=== PATIENT | female | born 1935 | race Caucasian/White ===

== ENCOUNTER → 2017-12-31 16:04 | Outpatient (POV) | payer MEDICARE, BC, SELFPAY | PROVIDERS: Family Provider Family Medicine; PCP Family Medicine; Visit Provider Family Medicine | DX: Z00.00 Encounter for general adult medical examination without abnormal findings (principal) ==

== ENCOUNTER → 2018-09-30 13:49 | Outpatient (POV) | payer MEDICARE, BC, SELFPAY | DX: Z00.00 Encounter for general adult medical examination without abnormal findings (principal) ==

== ENCOUNTER → 2018-10-30 08:16 | Outpatient (CLI) | payer MEDICARE, BC, SELFPAY ==
--- NOTE | 2018-10-30 08:21 | MM_ITS ---
MM Dig screening mamm BI w/CAD ORDERING PHYSICIAN : Gucci Donahue MD PATIENT AGE: 82 years GENDER: Female COMPARISON: August 2016, 2014 INDICATION: Routine Screening bilateral mammogram. No hormones no new complaints noncontributory family history TECHNIQUE: Standard CC and MLO images were obtained. R2 CAD reviewed. FINDINGS: Low-density breast bilaterally with no significant new findings. No dominant or suspicious mass. No suspicious calcifications. Minimal benign calcifications. Bilateral follow-up in one year recommended. RIGHT BREAST:No new findings LEFT BREAST no new findings of concern :Stable small area of nodularity at the lateral left breast reflecting intramammary lymph node. IMPRESSION: Stable bilateral mammogram. No new areas concern. BI-RADS Category: 1 Negative RECOMMENDED FOLLOW-UP: 1YR 1 YEAR FOLLOW-UP (A letter has been sent to the patient regarding results of the study.)
== END ==
PROVIDERS: PCP Family Medicine; Visit Provider Family Medicine
DX: Z12.31 Encounter for screening mammogram for malignant neoplasm of breast (principal)
CPT/HCPCS: 77067

== ENCOUNTER → 2018-12-07 14:57 | Outpatient (CLI) | payer MEDICARE, BC, SELFPAY ==
--- NOTE | 2018-12-07 15:04 | XR_ITS ---
XR knee LT 3V HISTORY: Left knee pain ITS.REASON: JUDITH KNEE PAIN ORDERING PHYSICIAN: Gcuci Donahue MD PATIENT AGE: 83 years COMPARISON: None FINDINGS: There are mild tricompartmental osteoarthritic changes with chondrocalcinosis of the medial lateral compartment. Osteoarthritic changes are present at the patellofemoral joint with remodeling and sclerosis of the distal femur anteriorly. No fracture, lytic, or blastic changes. IMPRESSION: Osteoarthritis with chondrocalcinosis
--- NOTE | 2018-12-07 15:04 | XR_ITS ---
XR knee RT 3V HISTORY: Right knee pain ITS.REASON: JUDITH KNEE PAIN ORDERING PHYSICIAN: Gucci Donahue MD PATIENT AGE: 83 years COMPARISON: 04/21/2018 FINDINGS: There are moderate osteoarthritic changes of the medial compartment with mild osteoarthritis of the lateral compartment and patellofemoral joint. Chondrocalcinosis once again noted. There is a loose body in the popliteal fossa which measures 16 mm. There is remodeling and sclerosis involving the distal the femur with osteoarthritic changes of the patellofemoral joint. IMPRESSION: Osteoarthritis with chondrocalcinosis and loose body in the popliteal fossa. No significant change
== END ==
PROVIDERS: PCP Family Medicine; Visit Provider Family Medicine
DX: M25.562 Pain in left knee (principal); M25.561 Pain in right knee
CPT/HCPCS: 73562

== ENCOUNTER → 2018-12-28 14:22 | Outpatient (CLI) | payer MEDICARE, BC, SELFPAY ==
--- NOTE | 2018-12-28 14:29 | XR_ITS ---
XR pelvis 1-2V HISTORY: Bilateral hip pain ITS.REASON: back/ pelvis pain ORDERING PHYSICIAN: Raegan Hanson MD PATIENT AGE: 83 years Comparison: 09/04/2016 FINDINGS: No fracture or dislocation is evident. No significant degenerative change. No lytic or blastic change. The SI joints have an unremarkable appearance. Unremarkable soft tissues. IMPRESSION: Negative pelvis.
--- NOTE | 2018-12-28 14:29 | XR_ITS ---
EXAM: XR lumbar spine 2-3V HISTORY: Low back pain ITS.REASON: ap lateral standing ORDERING PHYSICIAN: Raegan Hanson MD PATIENT AGE: 83 years COMPARISON: 09/04/2016 FINDINGS: Standing views are performed of the lumbar spine. There is multilevel degenerative disc disease T11-S1. There is mild retrolisthesis of L3 on L4 4 mm, mild anterolisthesis of L4 on L5 of 4 mm, and 5 mm anterolisthesis of L5 on S1. Facet arthritic changes are noted at L4-L5 and S1. There is minimal lumbar curvature convex right. Overall no significant change from 09/04/2016. No fracture or dislocation. No lytic or blastic change. IMPRESSION: Multilevel lumbar spondylosis as detailed above with degenerative disc disease and facet arthritic change not significantly changed
== END ==
PROVIDERS: PCP Family Medicine; Visit Provider Orthopaedic Surgery
DX: M54.9 Dorsalgia, unspecified (principal); M54.5 Low back pain; M25.551 Pain in right hip; M25.552 Pain in left hip
CPT/HCPCS: 72100; 72170

== ENCOUNTER → 2019-02-03 14:10 | Outpatient (POV) | payer MEDICARE, BC, SELFPAY | DX: Z00.00 Encounter for general adult medical examination without abnormal findings (principal) ==

== ENCOUNTER → 2019-04-20 13:47 | Outpatient (POV) | payer MEDICARE, BC, SELFPAY | PROVIDERS: Visit Provider Dermatology | DX: Z00.00 Encounter for general adult medical examination without abnormal findings (principal) ==

== ENCOUNTER → 2019-07-06 12:55 | Outpatient (POV) | payer MEDICARE, BC, SELFPAY | PROVIDERS: Visit Provider Dermatology | DX: Z00.00 Encounter for general adult medical examination without abnormal findings (principal) ==

== ENCOUNTER → 2019-07-21 12:35 | Outpatient (CLI) | payer MEDICARE, BC, SELFPAY ==
--- NOTE | 2019-07-21 12:41 | XR_ITS ---
PROCEDURE: XR SHOULDER RT MIN 2V CLINICAL INDICATION: shoulder pain Right shoulder pain following injury COMPARISON: SHOU3R [id number] VIEWS from 10/10/2014 FINDINGS: Hypertrophic changes are present at the acromioclavicular joint with periarticular ossification superiorly mild osteoarthritic changes are present at the glenohumeral joint. No fracture or dislocation. No lytic or blastic change. IMPRESSION: Osteoarthritic changes, no acute finding with no significant change Dictated by: Shaun Tadeo MD 07/21/2019 17:28 Electronically signed by Shaun Tadeo MD in [place] 07/21/2019 17:28
== END ==
PROVIDERS: PCP Family Medicine; Visit Provider Orthopaedic Surgery
DX: M25.511 Pain in right shoulder (principal)
CPT/HCPCS: 73030

== ENCOUNTER → 2019-09-24 11:26 | Outpatient (CLI) | payer MEDICARE, BC, SELFPAY ==
--- NOTE | 2019-09-24 11:31 | XR_ITS ---
PROCEDURE: XR SHOULDER RT MIN 2V CLINICAL INDICATION: Shoulder pain COMPARISON: SHOU3R [id number] VIEWS from 10/10/2014 XR SHOULDER RT MIN 2V from 07/21/2019 FINDINGS: Osteoarthritic changes are present at the acromioclavicular joint and glenohumeral joint with prominent hypertrophic changes at the AC joint. No fracture or dislocation. No lytic or blastic change. IMPRESSION: Osteoarthritis AC joint and glenohumeral joint not significantly changed Dictated by: Shaun Tadeo MD 09/24/2019 13:25 Electronically signed by Shaun Tadeo MD in [place] 09/24/2019 13:25
--- NOTE | 2019-09-24 11:31 | XR_ITS ---
PROCEDURE: XR HUMERUS RT CLINICAL INDICATION: shoulder pain Posttraumatic pain COMPARISON: XR SHOULDER RT MIN 2V from 09/24/2019 FINDINGS: No fracture or dislocation. No lytic or blastic change. There is normal mineralization. Mild degenerative change glenohumeral joint and acromioclavicular joint. IMPRESSION: No acute findings. Dictated by: Shaun Tadeo MD 09/24/2019 13:26 Electronically signed by Shaun Tadeo MD in [place] 09/24/2019 13:26
== END ==
PROVIDERS: PCP Family Medicine; Visit Provider Orthopaedic Surgery
DX: M25.511 Pain in right shoulder (principal)
CPT/HCPCS: 73030; 73060

== ENCOUNTER → 2020-02-10 13:01 | Outpatient (CLI) | payer MEDICARE, BC, SELFPAY ==
--- NOTE | 2020-02-10 13:09 | XR_ITS ---
PROCEDURE: XR DEXA AXIAL SKELETON CLINICAL HISTORY: POST MENOPAUSAL COMPARISON: No exams were available for comparison FINDINGS: Total right femoral neck density is 0.706 grams/centimeters sq with T-score of -1.9. Total left femoral neck density is 0.694 grams/centimeters sq with a T-score of -2.0. L1-L4 density is 1.021 grams/centimeters sq with a T-score -0.2. IMPRESSION: Osteopenia with moderate fracture risk. Treatment advised. Suggest follow-up exam in 2 years Dictated by: Shaun Tadeo MD 02/10/2020 16:02 Electronically signed by Shaun Tadeo MD in [place] 02/10/2020 16:02
--- NOTE | 2020-02-10 13:44 | CA_ITS ---
APPROVED REPORT [employer] Worker: Michelle Tamez RVT Laterality: Bilateral Study Quality: Excellent Indications: Dizziness and Vertigo Risk Factors Hypertension: Hyperlipidemia Doppler Spectral Velocity Analysis ECA (R) 69.10/4.80 cm/s ECA (L) 67.80/6.10 cm/s dICA (R) 42.30/11.20 cm/s dICA (L) 40.80/13.80 cm/s Edmundo (R) 43.10/12.10 cm/s Edmundo (L) 42.80/11.80 cm/s pICA (R) 29.30/9.00 cm/s pICA (L) 46.40/9.40 cm/s dCCA (R) 56.60/10.90 cm/s dCCA (L) 46.90/9.20 cm/s pCCA (R) 53.20/10.30 cm/s pCCA (L) 62.70/13.30 cm/s Vert (R) 49.40/9.20 cm/s Vert (L) 50.50/10.70 cm/s ICA/CCA 0.76 ICA/CCA 0.99 Conclusion Study suggests less than 20% stenosis of the right internal cartoid artery unchanged from the 05/03/16 study. 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 Antegrade flow seen bilateral vertebral arteries. Electronically signed by : Shaun Tadeo MD 02/10/2020 17:56:46
== END ==
PROVIDERS: PCP Family Medicine; Visit Provider Family Medicine
DX: R42 Dizziness and giddiness (principal); Z78.0 Asymptomatic menopausal state
CPT/HCPCS: 77080; 93880

== ENCOUNTER → 2020-06-21 12:15 | Outpatient (CLI) | payer MEDICARE, BC, SELFPAY ==
--- NOTE | 2020-06-21 12:21 | CA_ITS ---
APPROVED REPORT Right Lower Extremity Venous Study for DVT. Rivet Bucker: CODY Indications Lower Extremity Pain: Right Vein Imaging CFV (R): compressive, spontaneous, phasic, augmentation SFJ (R): compressive, spontaneous, phasic, augmentation FEM (R): compressive, spontaneous, phasic, augmentation POP (R): compressive, spontaneous, phasic, augmentation DFV (R): compressive, spontaneous, phasic, augmentation PTV (R): Compressible GSV (R): Compressible SSV (R): Compressible Peroneals (R):Compressible GAS (R): Compressible Findings No evidence of DVT or superficial thrombophlebitis in the veins scanned of the right lower extremity. Conclusion No evidence of DVT or superficial thrombophlebitis in the veins scanned of the right lower extremity. Electronically signed by : Shaun Tadeo MD 06/21/2020 18:28:38
--- NOTE | 2020-06-21 12:46 | XR_ITS ---
PROCEDURE: XR KNEE RT 3V CLINICAL INDICATION: ARTHRITIS OF RT KNEE Pain COMPARISON: CR,CT KNEELMRT XR knee RT 2V from 04/21/2018 CR [id number] XR knee LT 3V from 12/07/2018 CR [id number] XR knee RT 3V from 12/07/2018 FINDINGS: There are moderate osteoarthritic changes of the right knee involving all 3 compartments with chondrocalcinosis of the medial lateral compartment. There is scalloping of the distal shaft of the femur anteriorly which appears chronic. There is a calcific density measuring 13 mm in the popliteal region of the distal femur and may represent either a loose body or an unusual osteophyte. IMPRESSION: Chronic changes with osteoarthritic changes and chondrocalcinosis with chronic scalloping of the anterior aspect of the distal femur Dictated by: Shaun Tadeo MD 06/21/2020 15:05 Shaun Tadeo MD in [place] 06/21/2020 15:05
== END ==
PROVIDERS: PCP Family Medicine; Visit Provider Family Medicine
DX: M79.604 Pain in right leg (principal); M17.11 Unilateral primary osteoarthritis, right knee
CPT/HCPCS: 73562; 93971

== ENCOUNTER 2020-07-04 07:00 | Emergency (ER) | payer MEDICARE, BC, SELFPAY ==
[2020-07-04 06:59] VITALS: BP 189/100; PULSE 77; RESP 19; TEMP 37.1; O2SAT 96; BMI 27.4
--- NOTE | 2020-07-04 07:18 | XR_ITS ---
PROCEDURE: XR ANKLE LT 2V CLINICAL INDICATION: pain COMPARISON: No exams were available for comparison FINDINGS: No acute fracture or dislocation. Slight increased soft tissue density noted distal to the tip of the lateral malleolus of questionable clinical significance. IMPRESSION: No acute findings. Dictated by: Shaun Tadeo MD 07/04/2020 09:19 Shaun Tadeo MD in [place] 07/04/2020 09:19
--- NOTE | 2020-07-04 08:10 | XR_ITS ---
PROCEDURE: XR FOOT LT MIN 3V CLINICAL INDICATION: fall, pain COMPARISON: CR FTR3 FOOT-RT-3 VIEWS from 06/09/2015 CR FTL3 FOOT-LT-3 VIEWS from 06/09/2015 FINDINGS: No fracture or dislocation. No lytic or blastic change. There is normal mineralization. Are osteoarthritic changes of the talonavicular joint. There is mild calcification of the plantar fascia. Other findings:None. IMPRESSION: No acute findings. Dictated by: Shaun Tadeo MD 07/04/2020 09:18 Shaun Tadeo MD in [place] 07/04/2020 09:18
--- NOTE | 2020-07-04 08:10 | XR_ITS ---
PROCEDURE: XR TIBIA FIBULA LT 2V CLINICAL INDICATION: fall, pain COMPARISON: No exams were available for comparison FINDINGS: No fracture or dislocation. No lytic or blastic change. There is normal mineralization. Osteoarthritic changes are present at the knee with chondrocalcinosis. Other findings:None. IMPRESSION: No acute findings. Dictated by: Shaun Tadeo MD 07/04/2020 09:15 Shaun Tadeo MD in [place] 07/04/2020 09:15
--- NOTE | 2020-07-04 08:10 | XR_ITS ---
PROCEDURE: XR KNEE LT 3V CLINICAL INDICATION: fall, pain COMPARISON: CR,CT KNEELMRT XR knee RT 2V from 04/21/2018 CR [id number] XR knee LT 3V from 12/07/2018 CR [id number] XR knee RT 3V from 12/07/2018 CR XR KNEE RT 3V from 06/21/2020 FINDINGS: No fracture or dislocation. No lytic or blastic change. There is normal mineralization. Mild osteoarthritis of all 3 compartments with chondrocalcinosis. There is some faint calcification noted in the suprapatellar region involving the soft tissues. There is some scalloping of the cortex anteriorly along the distal femur which appears stable Other findings:None. IMPRESSION: Osteoarthritis with chondrocalcinosis, no acute finding with no significant change Dictated by: Shaun Tadeo MD 07/04/2020 09:16 Shaun Tadeo MD in [place] 07/04/2020 09:16
--- NOTE | 2020-07-04 08:12 | HMH.EDGENADL ---
ED Disposition Clinical Impression: Ankle pain, left Qualifiers: Chronicity: chronic Qualified Code(s): M25.572 - Pain in left ankle and joints of left foot Disposition: Home, Self-Care Condition on Discharge: Good Prescriptions: Naproxen [Naproxen 500mg tab] 500 mg PO BID 7 Days #14 tab Prescription Printed Referrals: Gucci Donahue MD [Primary Care Provider] - - Critical Care Critical Care Time: No Attestation: On 07/04/20, the high probability of a clinically significant, sudden or life threatening deterioration of the following system(s) required my full and direct attention, intervention and personal management. The time I documented below is in addition to time spent performing reported procedures but includes the following listed in this critical care notation. Medical Decision Making - [place] Inquiry Pt receiving controlled substance: No Vital Signs: 07/04/20 06:59 07/04/20 08:29 07/04/20 08:30 Temperature 98.7 F Temperature Source Oral Pulse Rate [Left Radial] 77 72 77 Respiratory Rate 19 18 19 Blood Pressure [Right Arm] 189/100 H 176/85 H 176/85 H Blood Pressure Mean [Right Arm] 129 115 115 Blood Pressure Source [Right Arm] Automatic Cuff Automatic Cuff Automatic Cuff Blood Pressure Position [Right Arm] Sitting Sitting Sitting 02 Sat by Pulse Oximetry 96 97 Oxygen Delivery Method Room Air - Lab Data Lab Results 07/04/20 08:15: WBC 10.8, RBC 4.61, Hgb 14.7, Hct 42.5, MCV 92.3, MCH 32.0 H, MCHC 34.6, RDW 13.2, Plt Count 242, MPV 7.6, Neut % (Auto) 81.1 H, Lymph % (Auto) 10.0, Dewitt % (Auto) 6.3, Eos % (Auto) 2.2, Baso % (Auto) 0.4, Neut # (Auto) 8.7 H, Lymph # (Auto) 1.1, Dewitt # (Auto) 0.7, Eos # (Auto) 0.2, Baso # (Auto) 0.1, ESR 23 07/04/20 08:15: Sodium 141, Potassium 4.5, Chloride 106, Carbon Dioxide 26, Anion Gap 13.5, BUN 36 H, Creatinine 1.50 H, Estimated Creat Clear 31, Estimated GFR 33 L, Est GFR ( Amer) 40 L, Glucose 117 H, Calcium 9.3, C-Reactive Protein 14.8 H Result diagrams: 07/04/20 08:15 07/04/20 08:15 Orders (Tests/Meds): ED MEDICATIONS Discontinued Medications Generic Name Dose Route Start Last Admin Trade Name Mara PRN Reason Stop Dose Admin Morphine Sulfate 4 mg 07/04/20 08:12 07/04/20 08:29 Morphine 4mg/Ml Syringe IV 07/04/20 08:13 4 mg ONCE ONE Administration Ondansetron HCl 4 mg 07/04/20 08:24 07/04/20 08:29 Zofran 4mg/2ml Vial IV 07/04/20 08:25 4 mg ONCE ONE Administration Tramadol HCl 50 mg 07/04/20 09:43 Ultram 50mg Tablet PO 07/04/20 09:44 ONCE ONE ORDERS Category Date Time Status BMP [Basic Metabolic Panel] Stat Lab 07/04/20 08:15 Results C-Reactive Protein Stat Lab 07/04/20 08:15 Results Uric Acid Stat Lab 07/04/20 08:15 Results Medical Decision Narrative: The patient is an 84 year old female who presents with increased pain to the left lower extremity without injury. She is awake, alert, oriented and vitals are stable. She is tender over her left midfoot, ankle, tibfib and knee without obvious deformity. Her strength and sensation are intact. X-rays of the foot, ankle, tib fib and knee were obtained and showed evidence of osteoarthritis but no acute abnormality. Patient was given 4 mg IV morphine and 4 mg zofran IV for pain and nausea. Labs show a mild ANA of 1.50 up from 1.30 in 2017. On re-evaluation patient is feeling better. She states she has a history of gout (although cannot find in her chart) and this feels similar. Low concern for septic joint - normal WBC, afebrile, no pain on passive ROM, no erythema or warmth. At this time likely gout vs. arthritis. Will discharge on course of NSAIDs. Discussed with PCP Dr. Donahue who will follow up. Discussed with patient and son at bedside who feel comfortable going home - patient is moving in with her son today and has access to walker and wheel chair as needed. Discussed need for physical therapy and possible home health. Will disch
[2020-07-04 08:29] VITALS: BP 176/85; PULSE 72; RESP 18; O2SAT 97
[2020-07-04 08:30] VITALS: BP 176/85; PULSE 77; RESP 19
[2020-07-04 08:31] LABS: Basophils # 0.1 K/mm3 (0-0.2); Basophils % 0.4 % (0.1-2.0); Eosinophils # 0.2 K/mm3 (0.0-0.4); Eosinophils % 2.2 % (0.1-12.0); Hematocrit 42.5 % (37.0-47.0); Hemoglobin 14.7 g/dL (12.2-16.2); Lymphocytes # 1.1 K/mm3 (0.7-4.5); Mean Corpuscular HGB Conc 34.6 g/dL (31.8-35.4); Mean Corpuscular Volume 92.3 fl (81-99); Mean Platelet Volume 7.6 fl (7.4-10.4); Monocytes # 0.7 K/mm3 (0.1-1.0); Monocytes % 6.3 % (1.7-9.3); Neutrophils # 8.7 K/mm3 (1.8-7.8); Neutrophils % 81.1 % (37.0-80.0); Platelet Count 242 K/mm3 (142-424); Red Blood Count 4.61 M/mm3 (4.20-5.40); Red Cell Distribution Width 13.2 % (11.5-17.5); White Blood Count 10.8 K/mm3 (4.8-10.8)
[2020-07-04 08:49] LABS: Chloride 106 mmol/L (98-107)
[2020-07-04 08:50] LABS: Potassium 4.5 mmoL/L (3.5-5.1); Sodium 141 mmol/L (136-145)
[2020-07-04 08:53] LABS: Anion Gap 13.5 mEq/L (5-15); Blood Urea Nitrogen 36 mg/dl (7-17); Calcium 9.3 mg/dl (8.4-10.2); Carbon Dioxide 26 mmol/L (22.0-30.0); Creatinine Clearance Estimated 31 mL/min (50-200); Estimated Glomerular Filt Rate 33 ml/min (>60); GFR (African American) 40 ML/MIN (>60); Glucose 117 mg/dl (74-100)
[2020-07-04 08:54] LABS: Erythrocyte Sedimentation Rate 23 mm/hr (0-30)
[2020-07-04 08:58] LABS: C-Reactive Protein 14.8 mg/L (0-4)
[2020-07-04 09:53] VITALS: BP 185/94; PULSE 80; RESP 18; TEMP 37.1; O2SAT 98
[2020-07-04 10:05] LABS: Uric Acid 10.8 mg/dl (2.5-6.2)
== END 2020-07-04 10:34 | disposition home or self-care (01) ==
PROVIDERS: Emergency Medicine; Emergency Provider Emergency Medicine; PCP Family Medicine
DX: M25.572 Pain in left ankle and joints of left foot (principal); I10 Essential (primary) hypertension; E03.9 Hypothyroidism, unspecified; K21.9 Gastro-esophageal reflux disease without esophagitis; Z91.040 Latex allergy status; Z88.2 Allergy status to sulfonamides; Z79.899 Other long term (current) drug therapy
CPT/HCPCS: 73562; 73590; 73600; 73630; 80048; 84550; 85025; 85651; 86140; 96367; 96374; 96375; 99283; J2405

== ENCOUNTER 2020-07-18 12:23 | Observation (INO) | payer MEDICARE, BC, SELFPAY ==
--- NOTE | 2020-07-18 12:39 | PC.NURSE ---
Pt arrived to the floor at this time. via w/c with staff
[2020-07-18 12:51] VITALS: BP 140/68; PULSE 68; RESP 17; TEMP 36.4; O2SAT 92; BMI 27.1
--- NOTE | 2020-07-18 13:06 | HMH.HP ---
*Chief complaint: leg pain and UTI <Xiomara Fowler 07/18/20 13:27> *History of present illness: Ms. Bergman is an 84-year-old female with a history of chronic constipation, hypothyroidism, renal insufficiency, Jean Marie's syndrome, lymphedema of bilateral lower extremities, hyperuricemia, and macular degeneration who presented to the office of [facility] today complaining of persistent leg pain, inability to walk, and decrease in urinary output. She was also seen in the office of [facility] on 07/14/2020 with increase in her leg pain and was found to be depressed with a urinary tract infection. She was started on Zoloft, allopurinol for gout, and Cipro for her urinary tract infection. Today in the office patient stated the pain was severe in both feet and also describes some mild swelling. She also stated that she was not eating well and appetite has been very poor over the previous few weeks. With evaluation patient was determined to have an ongoing urinary tract infection with a decrease urinary output. She was also felt to be dehydrated. Thus she was admitted to [facility] having failed outpatient treatment. Vital signs in the office revealed a temperature of 98.4, blood pressure 130/74, and heart rate of 68. <Xiomara Fowler 07/18/20 13:27> [facility] History Medical History: Reports:: Gastroesophageal Reflux Disease(GERD), Hypertension, Renal Insufficiency Denies:: Diabetes Mellitus Type 1, Diabetes Mellitus Type 2 <Xiomara Fowler 07/18/20 13:27> *Have you ever received a pneumonia vaccine?: No <Xiomara Fowler 07/18/20 13:27> *Have you received a flu vaccine this season?: No <Xiomara Fowler 07/18/20 13:27> Other Medical History: Reports: Arthritis, Hypothyroidism <Xiomara Fowler 07/18/20 13:27> Comment:: Jean Marie's phenomenon, hyperuricemia, actinic keratosis, and macular degeneration. <Xiomara Fowler 07/18/20 13:27> Laterality Cases: Bilateral: Cataract, Other <Xiomara Fowler 07/18/20 13:27> Other Surgeries: Yes: Cholecystectomy, Colonoscopy <Xiomara Fowler 07/18/20 13:27> - *Social History Smoking Status: Never smoker <Xiomara Fowler 07/18/20 13:27> Alcohol Intake: never <Xiomara Fowler 07/18/20 13:27> *Occupational Status:: retired <Xiomara Fowler 07/18/20 13:27> *Travel in the last 8 weeks: None <Xiomara Fowler 07/18/20 13:27> Family Hx:: Cancer <Maureen Fowlerhy 07/18/20 13:27> Review of Systems - Constitutional Reports fatigue, Reports lack of energy, Reports weakness, Denies body ache(s), Denies fever(s), Denies headache(s) <[facility] 07/18/20 13:27> - Eyes Reports change in vision <[facility] 07/18/20 13:27> - ENT Denies dizziness, Denies ear pain, Denies sore throat <[facility] 07/18/20 13:27> - *Cardiovascular Reports leg swelling, Denies chest pain, Denies shortness of breath, Denies generalized swelling <[facility] 07/18/20 13:27> - *Respiratory Denies chest congestion, Denies cough, Denies shortness of breath <[facility] 07/18/20 13:27> - *Gastrointestinal Reports abdominal pain (Sometimes), Reports belching, Reports constipation, Denies heartburn, Denies excessive passing of gas, Denies nausea, Denies vomiting <Maureen Fowlerhy 07/18/20 13:27> - *Genitourinary Reports difficulty urinating, Denies painful urination <[facility] 07/18/20 13:27> - *Musculoskeletal Reports joint pain, Reports muscle weakness <[facility] 07/18/20 13:27> - *Neurologic Reports abnormal walking, Reports frequent falls <[facility] 07/18/20 13:27> Meds Home Medications Medication Instructions Recorded Confirmed Type carvedilol 6.25 mg tablet 6.25 mg PO BID 12/28/18 07/18/20 History clonidine HCl 0.1 mg tablet 0.1 mg PO QHS 12/28/18 07/18/20 History diazepam 2 mg tablet 2 mg PO HS 12/28/18 07/18/20 History levothyroxine 50 mcg capsule 50 mcg PO DAILY 12/28/18 07/18/20 History potassium chloride 20 mEq oral
[2020-07-18 13:20] LABS: Chloride 109 mmol/L (98-107); Sodium 142 mmol/L (136-145)
[2020-07-18 13:21] LABS: Potassium 4.8 mmoL/L (3.5-5.1)
[2020-07-18 13:22] LABS: Basophils # 0.1 K/mm3 (0-0.2); Basophils % 0.9 % (0.1-2.0); Eosinophils # 0.2 K/mm3 (0.0-0.4); Eosinophils % 3.4 % (0.1-12.0); Hematocrit 46.2 % (37.0-47.0); Hemoglobin 15.1 g/dL (12.2-16.2); Lymphocytes # 1.6 K/mm3 (0.7-4.5); Lymphocytes % 24.4 % (10-50); Mean Corpuscular HGB Conc 32.6 g/dL (31.8-35.4); Mean Corpuscular Hemoglobin 30.7 pg (27.0-31.2); Mean Corpuscular Volume 94.1 fl (81-99); Mean Platelet Volume 7.8 fl (7.4-10.4); Monocytes # 0.4 K/mm3 (0.1-1.0); Neutrophils # 4.3 K/mm3 (1.8-7.8); Neutrophils % 65.2 % (37.0-80.0); Platelet Count 274 K/mm3 (142-424); Red Blood Count 4.91 M/mm3 (4.20-5.40); Red Cell Distribution Width 13.2 % (11.5-17.5); White Blood Count 6.6 K/mm3 (4.8-10.8)
[2020-07-18 13:23] LABS: Alanine Aminotransferase 24 U/L (12-78); Albumin/Globulin Ratio 1.2 (1.1-1.8); Alkaline Phosphatase 98 U/L (38-126); Anion Gap 12.8 mEq/L (5-15); Aspartate Amino Transferase 45 U/L (14-36); Bilirubin,Total 0.7 mg/dl (0.2-1.3); Blood Urea Nitrogen 43 mg/dl (7-17); Carbon Dioxide 25 mmol/L (22.0-30.0); Creatinine Clearance Estimated 18 mL/min (50-200); Estimated Glomerular Filt Rate 16 ml/min (>60); GFR (African American) 20 ML/MIN (>60); Globulin 3.4 g/dL (1.3-3.2); Glucose 112 mg/dl (74-100); Lactic Acid 0.9 mmol/L (0.7-2.1); Total Protein,Serum 7.4 g/dl (6.3-8.2)
--- NOTE | 2020-07-18 14:35 | HMH.PHAVTE ---
[facility] Pharmacy VTE Monitoring - Patient Demographics Admission date: 07/18/20 Report Date: 07/18/20 Time: 14:35 Allergies/Adverse Reactions: Patient Allergies latex [LATEX] Allergy (Unknown, Verified 09/24/19 11:09) I-RASH clarithromycin Allergy (Verified 09/24/19 11:09) nausea gabapentin Allergy (Verified 09/24/19 11:09) Dizziness hydroxyzine [From Vistaril] Allergy (Verified 09/24/19 11:09) NIghtmares meloxicam Allergy (Verified 09/24/19 11:09) Dizzy prednisone Allergy (Verified 09/24/19 11:09) Sulfa (Sulfonamide Antibiotics) Allergy (Verified 09/24/19 11:09) sulfamethoxazole [From Bactrim] Allergy (Verified 09/24/19 11:09) Swelling trimethoprim [From Bactrim] Allergy (Verified 09/24/19 11:09) Swelling Height: 1.63 m Weight: 71.724 kg Patient Problems: Current Active Problems Urinary tract infection (Acute) Dehydration (Acute) Hyperuricemia (Acute) Hypothyroidism (Acute) Renal insufficiency (Acute) Lymphedema (Acute) - VTE Risk Labs: VTE Related Lab Results Hgb 15.1 g/dL (12.2-16.2) 07/18/20 12:55 Hct 46.2 % (37.0-47.0) 07/18/20 12:55 Plt Count 274 K/mm3 (142-424) 07/18/20 12:55 BUN 43 mg/dl (7-17) H 07/18/20 12:55 Creatinine 2.80 mg/dl (0.52-1.04) H 07/18/20 12:55 Estimated Creat Clear 18 mL/min (50-200) 07/18/20 12:55 Was VTE Risk Assessment Performed: Yes VTE Score: 1 VTE Risk Level: Very Low Risk Clinical Trial Participant: No - Prophylaxis VTE Prophylaxis Ordered?: Yes Types of VTE Prophylaxis: TEDS Knee High
--- NOTE | 2020-07-18 14:39 | HMH.PHAINT ---
home medication reconciliation completed using list from [facility] pharmacy.
[2020-07-18 15:27] VITALS: O2SAT 92
[2020-07-18 15:39] VITALS: BP 139/60; PULSE 65; RESP 17; TEMP 36.6; O2SAT 90
--- NOTE | 2020-07-18 15:42 | PC.NURSE ---
PT IS ALERT AND ORIENTED X4. PT DISPLAYED S/S OF ANXIETY UPON ARRIVAL TO UNIT. SHE KEPT REPEATING, OH, GOD, I HAVE TO GET OUT OF HERE, I CANT TAKE THIS, DURING IV INSERTION. PT WAS EASILY DE-ESCALATED WITH VERBAL REDIRECTION AND HAS BEEN RESTING COMFORTABLY WATCHING TV IN BED. LUNGS CTA. ABDOMEN IS ROUND, TENDER, AND DISTENDED WITH HYPOACTIVE BS IN ALL QUADS. NO BM THIS SHIFT. PT VOIDED A SMALL AMOUNT OF DARK YELLOW URINE PER TOILET. URINE SAMPLE NOT COLLECTED YET D/T PT URINATING AROUND THE URINE COLLECTION HAT, WILL CONTINUE TO ATTEMPT URINE SAMPLE AND EDUCATION REINFORCED ON URINE COLLECTION, PT VERBALIZED UNDERSTANDING. APPETITE IS EXCELLENT AND DIET TOLERATED. IV IS SECURE, PATENT, AND INFUSING IVF. VSS. FALL PREVENTION EDUCATION COMPLETED AND CALL, DONT FALL EDUCATION PROVIDED. SAFETY MEASURES IN PLACE, WILL CONTINUE TO MONITOR
[2020-07-18 17:18] LABS: Coronavirus 19 IgG Antibody Negative (Negative); Coronavirus 19 IgM Antibody Negative (Negative)
[2020-07-18 18:41] LABS: Microscopic, Urine URINE MICROSCOPIC (MICROSCOPIC)
[2020-07-18 18:48] LABS: Appearance,Urine CLEAR (Clear); Bilirubin,Urine Negative (Negative); Blood, Urine Negative (Negative); Color,Urine YELLOW (Yellow); Glucose,Urine (UA) Negative (Negative); Ketones,Urine Negative (Negative); Leukocyte Esterase,Urine Negative (Negative); Nitrate,Urine Negative (Negative); Protein,Urine Negative (Negative); Urobilinogen,Urine 0.2 EU/dl (0.2)
[2020-07-18 20:12] LABS: RBC,Urine Occasional #/hpf (0-3)
[2020-07-18 20:31] VITALS: BP 140/65; PULSE 68; RESP 18; TEMP 36.9; O2SAT 93
--- NOTE | 2020-07-19 04:40 | PC.NURSE ---
Pt A&OX4.lungs CTA pt c/o pain medicated per DEC. Pt ambulates to BR x 1 assistance. pt has rested quietly this shift
[2020-07-19 06:00] VITALS: BMI 27.6
[2020-07-19 06:39] LABS: Basophils # 0.1 K/mm3 (0-0.2); Basophils % 1.1 % (0.1-2.0); Eosinophils # 0.2 K/mm3 (0.0-0.4); Eosinophils % 4.4 % (0.1-12.0); Hematocrit 39.7 % (37.0-47.0); Lymphocytes # 1.6 K/mm3 (0.7-4.5); Lymphocytes % 29.6 % (10-50); Mean Corpuscular HGB Conc 31.7 g/dL (31.8-35.4); Mean Corpuscular Hemoglobin 30.1 pg (27.0-31.2); Mean Platelet Volume 7.3 fl (7.4-10.4); Monocytes # 0.3 K/mm3 (0.1-1.0); Monocytes % 6.3 % (1.7-9.3); Neutrophils # 3.1 K/mm3 (1.8-7.8); Neutrophils % 58.6 % (37.0-80.0); Platelet Count 235 K/mm3 (142-424); Red Blood Count 4.18 M/mm3 (4.20-5.40); Red Cell Distribution Width 13.1 % (11.5-17.5); White Blood Count 5.3 K/mm3 (4.8-10.8)
[2020-07-19 07:05] LABS: Chloride 110 mmol/L (98-107); Sodium 140 mmol/L (136-145)
[2020-07-19 07:06] LABS: Potassium 4.6 mmoL/L (3.5-5.1)
[2020-07-19 07:09] LABS: Anion Gap 14.6 mEq/L (5-15); Blood Urea Nitrogen 36 mg/dl (7-17); Carbon Dioxide 20 mmol/L (22.0-30.0); Creatinine Clearance Estimated 22 mL/min (50-200); Estimated Glomerular Filt Rate 20 ml/min (>60); GFR (African American) 25 ML/MIN (>60); Glucose 92 mg/dl (74-100)
[2020-07-19 08:00] VITALS: BP 135/78; PULSE 68; RESP 17; TEMP 36.5; O2SAT 99
[2020-07-19 08:13] LABS: Hemoglobin 12.7 g/dL (12.2-16.2)
--- NOTE | 2020-07-19 08:17 | HMH.ACPN2 ---
Internal Medicine - PN: Subj *Date: 07/19/20 *Time: 08:17 Interval history: Patient feels better today. She has not eaten much at all. She has had better UOP. Exam Vital signs and Labs for Last 24 Hours: Temp Pulse Resp BP Pulse Ox 98.4 F 68 18 140/65 93 L 07/18/20 20:31 07/18/20 20:31 07/18/20 20:31 07/18/20 20:31 07/18/20 20:31 Laboratory Results - last 24 hr 07/18/20 12:55: WBC 6.6, RBC 4.91, Hgb 15.1, Hct 46.2, MCV 94.1, MCH 30.7, MCHC 32.6, RDW 13.2, Plt Count 274, MPV 7.8, Neut % (Auto) 65.2, Lymph % (Auto) 24.4, [place] % (Auto) 6.0, Eos % (Auto) 3.4, Baso % (Auto) 0.9, Neut # (Auto) 4.3, Lymph # (Auto) 1.6, [place] # (Auto) 0.4, Eos # (Auto) 0.2, Baso # (Auto) 0.1 07/18/20 12:55: Sodium 142, Potassium 4.8, Chloride 109 H, Carbon Dioxide 25, Anion Gap 12.8, BUN 43 H, Creatinine 2.80 H, Estimated Creat Clear 18, Estimated GFR 16 L*, Est GFR ( Amer) 20 L, Glucose 112 H, Calcium 10.0, Total Bilirubin 0.7, AST 45 H, ALT 24, Alkaline Phosphatase 98, Total Protein 7.4, Albumin 4.0, Globulin 3.4 H, Albumin/Globulin Ratio 1.2 07/18/20 12:55: Lactate 0.9 07/18/20 12:55: SARS-CoV-2 IgG Ab (Rapid) Negative, SARS-CoV-2 IgM Ab (Rapid) Negative 07/18/20 18:36: Urine Color Yellow, Urine Appearance Clear, Urine pH 6.0, Ur Specific [place] 1.020, Urine Protein Negative, Urine Glucose (UA) Negative, Urine Ketones Negative, Urine Blood Negative, Urine Nitrate Negative, Urine Bilirubin Negative, Urine Urobilinogen 0.2, Ur Leukocyte Esterase Negative, Urine RBC Occasional 07/19/20 05:50: WBC 5.3, RBC 4.18 L, Hgb 12.7 D, Hct 39.7, MCV 95.0, MCH 30.1, MCHC 31.7 L, RDW 13.1, Plt Count 235, MPV 7.3 L, Neut % (Auto) 58.6, Lymph % (Auto) 29.6, [place] % (Auto) 6.3, Eos % (Auto) 4.4, Baso % (Auto) 1.1, Neut # (Auto) 3.1, Lymph # (Auto) 1.6, [place] # (Auto) 0.3, Eos # (Auto) 0.2, Baso # (Auto) 0.1 07/19/20 05:50: Sodium 140, Potassium 4.6, Chloride 110 H, Carbon Dioxide 20 L, Anion Gap 14.6, BUN 36 H, Creatinine 2.30 H, Estimated Creat Clear 22, Estimated GFR 20 L, Est GFR ( Amer) 25 L D, Glucose 92 I & O for Last 24 hours: Intake & Output 07/16/20 07/17/20 07/18/20 07/19/20 23:59 23:59 23:59 23:59 Intake Total 120 / 120 1848 / 1848 Balance 120 / 120 1848 / 1848 Weight 158 lb 2 oz 162 lb - Constitutional no acute distress - *Routine HEENT Exam Head: Present: normocephalic Eye: Present: EOMI ENT: Present: mucous membranes moist - *Routine Neck Exam Present: supple. Absent: lymphadenopathy - *Routine Respiratory Exam Present: CTA bilaterally - *Routine Cardiovascular Exam Present: RRR - *Routine Abdominal Exam Present: soft, normoactive bowel sounds. Absent: tenderness - *Routine Extremities Exam Absent: cyanosis, clubbing, edema - *Routine Skin Exam Present: warm. Absent: rash - *Routine Neurological Exam Present: alert, oriented X3 Assessment and Plan (1) Urinary tract infection Status: Acute Category: Medical Code(s): N39.0 - Urinary tract infection, site not specified (2) Dehydration Status: Acute Category: Medical Code(s): E86.0 - Dehydration (3) Hyperuricemia Status: Acute Category: Medical Code(s): E79.0 - Hyperuricemia without signs of inflammatory arthritis and tophaceous disease (4) Hypothyroidism Status: Acute Category: Medical Code(s): E03.9 - Hypothyroidism, unspecified (5) Renal insufficiency Status: Acute Category: Medical Code(s): N28.9 - Disorder of kidney and ureter, unspecified (6) Lymphedema Status: Acute Category: Medical Code(s): I89.0 - Lymphedema, not elsewhere classified - Assessment and plan all Dx Assessment and Plan for all problems:: Patient has improved, continue current treatment, probable discharge tomorrow.
[2020-07-19 08:21] LABS: Calcium 8.9 mg/dl (8.4-10.2)
[2020-07-19 09:30] VITALS: O2SAT 99
[2020-07-19 16:00] VITALS: BP 145/84; PULSE 75; RESP 20; TEMP 36.6; O2SAT 98
[2020-07-19 17:11] VITALS: BMI 27.4
--- NOTE | 2020-07-19 21:23 | PC.NURSE ---
A&OX4. PT HAS TOLERATED ROOM AIR WELL THROUGHOUT SHIFT. RESPIRATIONS REGULAR AND UNLABORED. LUNG SOUNDS BILATERALLY CLEAR. NO COUGH NOTED. HAND TELEVISION INSTALLER HELPER EQUAL. +2 PULSES NOTED THROUGHOUT. +1 PITTING EDEMA NOTED IN BLE. PT AMBULATES W WALKER AND STANDBY ASSISTANCE TO THE BATHROOM. NO BM THIS SHIFT. CLEAR YELLOW URINE NOTED. ACTIVE BOWEL SOUNDS HEARD IN ALL 4 QUADRANTS. SOFT AND NONTENDER ABDOMEN. PT HAD A GREAT MORNING BUT AFTER LUNCH PT BECAME VERY TEARFUL STATING HER FAMILY DIDN'T CARE ABOUT HER AND THEY MADE FUN OF HER FOR ALWAYS BEING COLD. PT WAS COMFORTED AND RECEIVED VALUM. PT WAS EMOTIONAL OCCASIONALLY THROUGHOUT THE REST OF THE DAY. SON WAS CONTACTED AND HE SAID THAT IS NORMAL FOR HER. SHE GETS VERY EMOTIONAL AT HOME. PT BECAME VERY AGITATED AROUND 1800 AND STARTED YELLING AT STAFF AND TRYING TO GRAB STAFF. SHE STATED WE WERE TRYING TO POISON HER AND SHE WANTS TO LEAVE. SHE DOESN'T KNOW HOW SHE GOT HERE. PT WAS REORIENTED EXPLAINING SHE HAS A UTI AND HER FAMILY BROUGHT HER IN. PT CONTINUED TO BE AGGRESSIVE. SHE THREATENED TO CALL THE POLICE. SHE PULLED OUT HER IV AND A NEW ONE WAS INSERTED IN HER L FOREARM. DR MCKAY WAS CONTACTED AND ATIVAN 1MG WAS ADMINISTERED. PT IS STILL VERY AGITATED AND YELLING AT STAFF SAYING GET AWAY. SON WAS CONTACTED AGAIN TO LET HIM KNOW OF THE SITUATION. HE STATED HE WOULD BE UP SHORTLY TO SEE HER. WHEN SON GOT HER, HE WAS UNABLE TO KEEP HER CALM. SHE CONTINUED TO TRY TO PULL NEW IV OUT. SON SAID THIS HAS HAPPENED IN THE PAST WHEN PT WAS AT . PT IS WITH SON AT THIS TIME. BED ALARM ON TO PROMOTE SAFETY. SHE IS LYING IN BED. CALL LIGHT WITHIN REACH. BED IN LOWEST POSITION. VSS. WILL CONTINUE TO MONITOR.
[2020-07-19 21:36] VITALS: BP 160/79; PULSE 71; RESP 20; TEMP 36.7; O2SAT 90
--- NOTE | 2020-07-19 22:40 | PC.NURSE ---
Unable to infuse IVF at this time due to pt thrashing herself in the bed, attempting to bite IV tubing in half. Will continue to monitor.
--- NOTE | 2020-07-20 01:32 | PC.NURSE ---
Spoke with manager action, Cr at 2107. Pt very agitated, combative with staff, confused, throwing objects at staff and restless. MD gave okay to administer Ativan per DEC early due to increased agitation at this time. Pt tolerated Ativan well. Staff able to assist pt to chair in room. Pt noted in a calmer demeanor for about an hour. Staff one on one assist with pt for safety measures. also gave orders at this time to administer Valium 5 mg PO once as well. This RN was unsuccessful in attempt to give pt medicine. Tried crushing med and mixing with ice cream. Pt refused to eat bite of ice cream at this time. On second attempt, pt took a small bite of ice cream with medication then proceeded to spit it out at staff. Notified Cr JAQUEZ again at 2253. Provided MD with pt update at this time. Pt wandering in room, attempting to hit staff over the head with her walker. Pt refusing to let staff touch her, states we are hurting her . Pt refusing to lie in bed or sit in chair for safety. Pt noted combative, cussing at staff, and screaming for help. Staff remains in room with one on one for pt safety. MD gave order for Respiridone 0.25 mg PO BID at this time. MD requested for family to be notified of changes and request overnight stay with pt for comfort. Called pt's son Urbano at 2254. Spoke with him about his mother's mood changes since he had left at 1999. Son states he is going to call his daughter who lives nearby in [place] and see if she can come stay with the pt. Waiting for family arrival at this time. Pt lying in bed with all 4 side rails elevated for pt safety. Staff remains in room for one on one safety watch. Pt attempting to kick, spit, bite, punch, and twist the wrists of all staff who attempt to calm her down at this time. Pt also shouting out that staff is attempting to rape her , she feels unsafe because we have tried doing inappropriate things to her and have attempted to harm her . This RN attempted to administer Respiridone per DEC to pt. Pt refused to take medication PO. States we are hateful and trying to poison her . Pt also states all the pills are laced with marijuana . This RN attempted to notify pt's son Urbano again at this time. Rang with no answer, unable to leave voicemail. No family present at this time. Waiting on return phone call from son. The tech that was sitting with pt in room for safety called out for this RN to help her due to pt biting her IV tubing noted in right hand in half and attempting to pull it out. This RN attempted to reorientate pt at this time, reassuring her we just wanted to help her and that pulling out her IV would only cause her more harm. Pt became verbally and physically aggressive towards this RN. With assistance x3, this RN was able to successfully apply mitten over bilateral hands for additional safety measures. Pt continues to bite and hit staff who come near her. Pt also continues to refuse to take the Respiridone per DEC for agitation upon second attempt. At 0130 pt stated she had to pee . Continued to refuse BSC and application of brief. With staff assist x2 and walker, pt successfully walked to bathroom and became less physically agitated at this time. Pt threw her urinary collection device out of commode and proceeded to sit down. Reluctantly pt allowed staff to help her with wiping and returning back to bed. Pt noted yawning and states she is tired now . Pt returned to bed safely, staff remains in room. Mitts remain in place on bilateral hands. IV intact. Will continue to monitor.
--- NOTE | 2020-07-20 04:03 | PC.NURSE ---
Pt noted to be resting well with eyes closed since 0200 this am. Bed alarm turned on and functioning for pt safety at this time. Bilateral hand roller skate assembler noted equal and strong. PERRLA. Cap refill < 3 seconds. Bilateral lungs noted clear t/o upon auscultation. Tolerated RA well with no c/o SOA. Denies N/V/D. Adequate urine output noted. +2 pitting edema noted to BLE. Refused TEDS. No further complaints, will continue to monitor.
--- NOTE | 2020-07-20 05:58 | PC.NURSE ---
Spoke with son Urbano at this time. He states his daughter will be here this am to sit with pt.
[2020-07-20 06:47] VITALS: PULSE 82; RESP 20; TEMP 36.5; O2SAT 90
[2020-07-20 06:49] VITALS: BMI 27.8
--- NOTE | 2020-07-20 06:50 | PC.NURSE ---
was unable to take 215 blood pressure because patient was combative
[2020-07-20 06:51] VITALS: BMI 27.8
[2020-07-20 07:11] LABS: Basophils # 0.1 K/mm3 (0-0.2); Basophils % 1.1 % (0.1-2.0); Eosinophils # 0.2 K/mm3 (0.0-0.4); Eosinophils % 4.9 % (0.1-12.0); Hematocrit 39.4 % (37.0-47.0); Hemoglobin 12.9 g/dL (12.2-16.2); Lymphocytes # 1.1 K/mm3 (0.7-4.5); Lymphocytes % 21.5 % (10-50); Mean Corpuscular HGB Conc 32.8 g/dL (31.8-35.4); Mean Corpuscular Hemoglobin 30.6 pg (27.0-31.2); Mean Corpuscular Volume 93.2 fl (81-99); Mean Platelet Volume 7.5 fl (7.4-10.4); Monocytes # 0.3 K/mm3 (0.1-1.0); Monocytes % 6.9 % (1.7-9.3); Neutrophils # 3.3 K/mm3 (1.8-7.8); Neutrophils % 65.7 % (37.0-80.0); Platelet Count 236 K/mm3 (142-424); Red Blood Count 4.22 M/mm3 (4.20-5.40); Red Cell Distribution Width 13.1 % (11.5-17.5)
[2020-07-20 07:19] LABS: Chloride 110 mmol/L (98-107); Potassium 4.1 mmoL/L (3.5-5.1); Sodium 142 mmol/L (136-145)
[2020-07-20 07:22] LABS: Anion Gap 11.1 mEq/L (5-15); Blood Urea Nitrogen 28 mg/dl (7-17); Calcium 9.4 mg/dl (8.4-10.2); Carbon Dioxide 25 mmol/L (22.0-30.0); Creatinine Clearance Estimated 27 mL/min (50-200); Estimated Glomerular Filt Rate 25 ml/min (>60); GFR (African American) 31 ML/MIN (>60); Glucose 92 mg/dl (74-100)
--- NOTE | 2020-07-20 08:01 | PC.NURSE ---
not able to get any vitals on patient due to patient hitting and kicking and screaming nurse aware.
--- NOTE | 2020-07-20 08:54 | HMH.ACPN2 ---
Internal Medicine - PN: Subj *Date: 07/20/20 *Time: 08:54 Interval history: Events of overnight reviewed, spoke to primary RN. Patient was combative at times, she did sleep for several hours after awakening she was less combative. She is more cooperative this morning. Per patient's son, she has a history of similar outbursts with previous hospital admissions. Exam Vital signs and Labs for Last 24 Hours: Temp Pulse Resp BP Pulse Ox 97.7 F 82 20 160/79 H 90 L 07/20/20 06:47 07/20/20 06:47 07/20/20 06:47 07/19/20 21:36 07/20/20 06:47 Laboratory Results - last 24 hr 07/20/20 07:05: WBC 5.0, RBC 4.22, Hgb 12.9, Hct 39.4, MCV 93.2, MCH 30.6, MCHC 32.8, RDW 13.1, Plt Count 236, MPV 7.5, Neut % (Auto) 65.7, Lymph % (Auto) 21.5, [place] % (Auto) 6.9, Eos % (Auto) 4.9, Baso % (Auto) 1.1, Neut # (Auto) 3.3, Lymph # (Auto) 1.1, [place] # (Auto) 0.3, Eos # (Auto) 0.2, Baso # (Auto) 0.1 07/20/20 07:05: Sodium 142, Potassium 4.1, Chloride 110 H, Carbon Dioxide 25 D, Anion Gap 11.1, BUN 28 H, Creatinine 1.90 H, Estimated Creat Clear 27, Estimated GFR 25 L, Est GFR ( Amer) 31 L D, Glucose 92, Calcium 9.4 Vital Signs - 24 hr 07/19/20 09:30 07/19/20 16:00 07/19/20 21:36 Temperature 97.9 F 98.0 F Pulse Rate [Left Radial] 75 71 Respiratory Rate 20 20 Blood Pressure [Right Arm] 145/84 H 160/79 H 02 Sat by Pulse Oximetry 99 98 90 L 07/20/20 06:47 Temperature 97.7 F Pulse Rate [Left Radial] 82 Respiratory Rate 20 Blood Pressure [Right Arm] 02 Sat by Pulse Oximetry 90 L I & O for Last 24 hours: Intake & Output 07/17/20 07/18/20 07/19/20 07/20/20 23:59 23:59 23:59 23:59 Intake Total 120 / 120 2520 / 2520 0 / 0 Output Total 350 / 350 Balance 120 / 120 2170 / 2170 0 / 0 Weight 158 lb 2 oz 160 lb 14.999 oz 163 lb 2.979 oz - Constitutional no acute distress (lying in bed, answers questions, nurse with 1:1 supervision of patient currently) - *Routine HEENT Exam Head: Present: normocephalic Eye: Present: EOMI ENT: Present: mucous membranes moist - *Routine Neck Exam Present: supple. Absent: lymphadenopathy - *Routine Respiratory Exam Present: CTA bilaterally - *Routine Cardiovascular Exam Present: RRR - *Routine Abdominal Exam Present: soft, normoactive bowel sounds. Absent: tenderness - *Routine Extremities Exam Absent: cyanosis, clubbing, edema - *Routine Skin Exam Present: warm. Absent: rash - *Routine Neurological Exam Present: alert Assessment and Plan (1) Urinary tract infection Status: Acute Category: Medical Code(s): N39.0 - Urinary tract infection, site not specified (2) Dehydration Status: Acute Category: Medical Code(s): E86.0 - Dehydration (3) Hyperuricemia Status: Acute Category: Medical Code(s): E79.0 - Hyperuricemia without signs of inflammatory arthritis and tophaceous disease (4) Hypothyroidism Status: Acute Category: Medical Code(s): E03.9 - Hypothyroidism, unspecified (5) Renal insufficiency Status: Acute Category: Medical Code(s): N28.9 - Disorder of kidney and ureter, unspecified (6) Lymphedema Status: Acute Category: Medical Code(s): I89.0 - Lymphedema, not elsewhere classified (7) Delirium Status: Acute Category: Medical Code(s): R41.0 - Disorientation, unspecified - Assessment and plan all Dx Assessment and Plan for all problems:: Possible discharge home today, would like to speak further with patient's son.
--- NOTE | 2020-07-20 10:43 | PC.NURSE ---
THIS RN RECEIVED A PHONE CALL FROM DR. CHAVEZ, PLANS TO D/C AFTER LUNCH.
--- NOTE | 2020-07-20 15:01 | PC.NURSE ---
PATIENT SLEPT FOR 2HRS, UPON WAKING UP PATIENT BEGAN SCREAMING THAT HER FINGERS WERE COLD. PATIENT'S MITTS WERE REMOVED AND FINGERS WERE BLUE. THIS RN ALONG WITH TAMMY COONEY APPLIED WARM BLANKETS. PATIENT'S FINGERS BECAME PINK. THIS RN PROVIDED D/C INSTRUCTIONS TO SON. THIS RN INFORMED PATIENT'S SON TO MAKE A FOLLOW UP APPT WITH DR. AMES WITHIN 1 WEEK. HE VERBALIZES AN UNDERSTANDING. THIS RN INQUIRED ABOUT PATIENT'S FINGERS BEING COLD AND TURNING BLUE. PATIENT'S SON STATED THAT HER FINGERS ALWAYS DO THAT. THIS RN ENCOURAGED PATIENT'S SON TO DISCUSS THIS WITH DR. AMES AT HER NEXT APPOINTMENT. PATIENT'S SON VERBALIZED AN UNDERSTANDING. NO OTHER CONCERNS AT THIS TIME.
--- NOTE | 2020-07-21 10:39 | HMH.DCSUM ---
General - General Admission date:: 07/18/20 Discharge date: 07/20/20 HPI HPI: Ms. Bergman is an 84-year-old female with a history of chronic constipation, hypothyroidism, renal insufficiency, Jean Marie's syndrome, lymphedema of bilateral lower extremities, hyperuricemia, and macular degeneration who presented to the office of [facility] complaining of persistent leg pain, inability to walk, and decrease in urinary output. She was also seen in the office of [facility] on 07/14/2020 with increase in her leg pain and was found to be depressed with a urinary tract infection. She was started on Zoloft, allopurinol for gout, and Cipro for her urinary tract infection. With the latest visit in the office patient stated the pain was severe in both feet and also described some mild swelling. She also stated that she was not eating well and appetite had been very poor over the previous few weeks. With evaluation patient was determined to have an ongoing urinary tract infection with a decrease urinary output. She was also felt to be dehydrated. Thus she was admitted to [facility] having failed outpatient treatment. Vital signs in the office revealed a temperature of 98.4, blood pressure 130/74, and heart rate of 68. Hospital Course Hospital Course: Patient was given a fluid bolus and started on IV fluids at 100/h. She was started on Protonix and Invanz for UTI. Renal function did improve with the IV fluids with improved urinary output. She did began to feel better. She did have 1 night where she became very agitated and combative. The following morning she was cooperative. Her son stated she had had a similar outburst with previous hospital admissions. After talking with the son who acknowledged that she lived with him and had someone with her at all times she was felt stable to be discharged home. Appetite remained poor. She was able to ambulate. Disposition: patient discharged home in stable and satisfactory condition. She had completed her antibiotic course. Meds as per medication reconciliation sheet. To follow-up with Dr. Donahue in 1 week. Objective Vital signs: Temp Pulse Resp BP Pulse Ox 97.7 F 82 20 160/79 H 90 L 07/20/20 06:47 07/20/20 06:47 07/20/20 06:47 07/19/20 21:36 07/20/20 06:47 Narrative: Exam Vital signs and Labs for Last 24 Hours: Temp Pulse Resp BP Pulse Ox 97.7 F 82 20 160/79 H 90 L 07/20/20 06:47 07/20/20 06:47 07/20/20 06:47 07/19/20 21:36 07/20/20 06:47 Laboratory Results - last 24 hr 07/20/20 07:05: WBC 5.0, RBC 4.22, Hgb 12.9, Hct 39.4, MCV 93.2, MCH 30.6, MCHC 32.8, RDW 13.1, Plt Count 236, MPV 7.5, Neut % (Auto) 65.7, Lymph % (Auto) 21.5, [place] % (Auto) 6.9, Eos % (Auto) 4.9, Baso % (Auto) 1.1, Neut # (Auto) 3.3, Lymph # (Auto) 1.1, [place] # (Auto) 0.3, Eos # (Auto) 0.2, Baso # (Auto) 0.1 07/20/20 07:05: Sodium 142, Potassium 4.1, Chloride 110 H, Carbon Dioxide 25 D, Anion Gap 11.1, BUN 28 H, Creatinine 1.90 H, Estimated Creat Clear 27, Estimated GFR 25 L, Est GFR ( Amer) 31 L D, Glucose 92, Calcium 9.4 Vital Signs - 24 hr 07/19/20 09:30 07/19/20 16:00 07/19/20 21:36 Temperature 97.9 F 98.0 F Pulse Rate [Left Radial] 75 71 Respiratory Rate 20 20 Blood Pressure [Right Arm] 145/84 H 160/79 H 02 Sat by Pulse Oximetry 99 98 90 L 07/20/20 06:47 Temperature 97.7 F Pulse Rate [Left Radial] 82 Respiratory Rate 20 Blood Pressure [Right Arm] 02 Sat by Pulse Oximetry 90 L I & O for Last 24 hours: Intake & Output 07/17/20 07/18/20 07/19/20 07/20/20 23:59 23:59 23:59 23:59 Intake Total 120 / 120 2520 / 2520 0 / 0 Output Total 350 / 350 Balance 120 / 120 2170 / 2170 0 / 0 Weight 158 lb 2 oz 160 lb 14.999 oz 163 lb 2.979 oz - Constitutional no acute distress (lying in bed, answers questions, nurse with 1:1 supervision of patient currently) - *Routine HEENT Exam Head: Pre
== END 2020-07-20 14:59 | disposition home or self-care (01) ==
PROVIDERS: Admitting Provider Family Medicine; PCP Family Medicine; Visit Provider Family Medicine
DX: N39.0 Urinary tract infection, site not specified (principal); E86.0 Dehydration; E03.9 Hypothyroidism, unspecified; I89.0 Lymphedema, not elsewhere classified; E79.0 Hyperuricemia without signs of inflammatory arthritis and tophaceous disease; I73.00 Raynaud's syndrome without gangrene; R45.1 Restlessness and agitation
CPT/HCPCS: G0379; 36415; 80048; 80053; 81001; 83605; 85025; 86328; 87040; 87086; G0378; J1335

== ENCOUNTER 2020-07-29 18:29 | Observation (INO) | payer MEDICARE, BC, SELFPAY ==
[2020-07-29 18:30] VITALS: BP 182/92; PULSE 69; RESP 18; TEMP 36.7; O2SAT 95; BMI 25.7
--- NOTE | 2020-07-29 18:54 | XR_ITS ---
PROCEDURE: XR CHEST PORTABLE CLINICAL HISTORY: AMS Altered mental status, altered level of consciousness, confusion, disorientation COMPARISON: CR CXR2 CHEST-AP VIEW ONLY from 05/03/2016 FINDINGS: The cardiomediastinal silhouette and pulmonary vascularity are within normal limits. The lungs are clear without infiltrates, suspicious nodules, or pleural effusions. There is a medium-sized hiatal hernia. IMPRESSION: Hiatal hernia otherwise negative Dictated by: Shaun Tadeo MD 07/30/2020 06:53 Shaun Tadeo MD in OV 07/30/2020 06:53
[2020-07-29 19:00] LABS: Basophils # 0.1 K/mm3 (0-0.2); Basophils % 0.9 % (0.1-2.0); Eosinophils # 0.4 K/mm3 (0.0-0.4); Eosinophils % 6.7 % (0.1-12.0); Hematocrit 41.4 % (37.0-47.0); Hemoglobin 13.6 g/dL (12.2-16.2); Lymphocytes # 0.9 K/mm3 (0.7-4.5); Lymphocytes % 14.5 % (10-50); Mean Corpuscular HGB Conc 32.8 g/dL (31.8-35.4); Mean Corpuscular Hemoglobin 30.9 pg (27.0-31.2); Mean Corpuscular Volume 94.2 fl (81-99); Mean Platelet Volume 7.4 fl (7.4-10.4); Monocytes # 0.5 K/mm3 (0.1-1.0); Monocytes % 8.8 % (1.7-9.3); Neutrophils # 4.2 K/mm3 (1.8-7.8); Neutrophils % 69.1 % (37.0-80.0); Platelet Count 401 K/mm3 (142-424); Red Blood Count 4.39 M/mm3 (4.20-5.40); Red Cell Distribution Width 13.3 % (11.5-17.5); White Blood Count 6.1 K/mm3 (4.8-10.8)
[2020-07-29 19:02] LABS: Microscopic, Urine URINE MICROSCOPIC (MICROSCOPIC)
--- NOTE | 2020-07-29 19:02 | CT_ITS ---
PROCEDURE: CT HEAD/BRAIN WO CON CLINICAL INDICATION: altered mental status Altered mental status, altered level of consciousness, confusion, disorientation COMPARISON: CT HDWO CT HEAD W/O CONTRAST from 09/15/[address] HEAD W/O CONTRAST from 05/03/2016 TECHNIQUE: Axial images obtained. All CT scans at the facility use one or more dose reduction, viz: automated exposure control, ma/kV adjustment per patient size (including targeted exams where dose is matched to indication, i.e. head), or iterative reconstruction technique. FINDINGS: No midline shift, mass effect, intracranial hemorrhage, hydrocephalus, or extra-axial fluid collection is evident. There is generalized atrophy with hypoattenuation of the periventricular white matter consistent with microangiopathic changes. The calvarium has an unremarkable appearance. Minimal opacification right mastoid sinus. Moderate thickening noted of the left maxillary sinus consistent with chronic inflammatory/infectious changes the cervical with partial opacification and postsurgical change. IMPRESSION: No acute intracranial findings. No change Dictated by: Shaun Tadeo MD 07/30/2020 08:18 Shaun Tadeo MD in OV 07/30/2020 08:18
[2020-07-29 19:11] VITALS: BP 154/79; PULSE 66; O2SAT 98
[2020-07-29 19:11] LABS: Appearance,Urine CLEAR (Clear); Bilirubin,Urine Negative (Negative); Blood, Urine Negative (Negative); Color,Urine YELLOW (Yellow); Glucose,Urine (UA) Negative (Negative); Ketones,Urine Negative (Negative); Leukocyte Esterase,Urine Negative (Negative); Nitrate,Urine Negative (Negative); PH,Urine 5.5 (5.0-8.5); Protein,Urine Negative (Negative); Specific Gravity, Urine 1.025 (1.005-1.030); Urobilinogen,Urine 0.2 EU/dl (0.2)
[2020-07-29 19:18] LABS: Chloride 105 mmol/L (98-107); Sodium 137 mmol/L (136-145)
[2020-07-29 19:20] LABS: WBC,Urine Occasional #/hpf (0-3)
[2020-07-29 19:21] LABS: Alanine Aminotransferase 32 U/L (12-78); Albumin Level 3.5 g/dl (3.5-5.0); Albumin/Globulin Ratio 0.9 (1.1-1.8); Alkaline Phosphatase 155 U/L (38-126); Anion Gap 13.3 mEq/L (5-15); Aspartate Amino Transferase 47 U/L (14-36); Bilirubin,Total 0.6 mg/dl (0.2-1.3); Blood Urea Nitrogen 50 mg/dl (7-17); Carbon Dioxide 24 mmol/L (22.0-30.0); Creatinine Clearance Estimated 23 mL/min (50-200); Estimated Glomerular Filt Rate 24 ml/min (>60); GFR (African American) 29 ML/MIN (>60); Globulin 3.9 g/dL (1.3-3.2); Total Protein,Serum 7.4 g/dl (6.3-8.2)
[2020-07-29 19:22] LABS: Calcium 10.5 mg/dl (8.4-10.2); Glucose 116 mg/dl (74-100); Lactic Acid 1.1 mmol/L (0.7-2.1)
--- NOTE | 2020-07-29 19:27 | PC.NURSE ---
speaking with [facility] for admission
[2020-07-29 19:28] LABS: Potassium 5.3 mmoL/L (3.5-5.1)
[2020-07-29 19:39] LABS: Coronavirus 19 IgG Antibody Positive (Negative)
[2020-07-29 19:40] LABS: Coronavirus 19 IgM Antibody Positive (Negative)
--- NOTE | 2020-07-29 19:41 | PC.NURSE ---
[facility] notified of positive antibody test. nasal swab requested and pt moved to room 1 for isolation pending results.
[2020-07-29 19:54] LABS: Adenovirus,PCR Not Detected (NotDetected); Bordetella Pertussis Not Detected (NotDetected); Chlamydophila Pneumoniae, PCR Not Detected (NotDetected); Coronavirus 19, PCR Not Detected (NotDetected); Coronavirus 229E Not Detected (NotDetected); Coronavirus NL63 Not Detected (NotDetected); Coronavirus OC43 Not Detected (NotDetected); Coronovirus HKU1,PCR Not Detected (NotDetected); Human Metapneumovirus Not Detected (NotDetected); Influenza A, PCR Not Detected (NotDetected); Influenza AH1, 2009 Not Detected (NotDetected); Influenza AH1, PCR Not Detected (NotDetected); Influenza AH3,PCR Not Detected (NotDetected); Influenza B, PCR Not Detected (NotDetected); Mycoplasma Pneumoniae, PCR Not Detected (NotDetected); Parainfluenza 1, PCR Not Detected (NotDetected); Parainfluenza 2, PCR Not Detected (NotDetected); Parainfluenza 3, PCR Not Detected (NotDetected); Parainfluenza 4, PCR Not Detected (NotDetected); Respiratory Syncytial Virus Not Detected (NotDetected); Rhinovirus/Enterovirus Not Detected (NotDetected)
[2020-07-29 20:30] VITALS: BP 157/83; PULSE 71; RESP 16; O2SAT 97
[2020-07-29 21:35] VITALS: BP 171/93; PULSE 73; RESP 16; O2SAT 94
[2020-07-29 22:28] LABS: Troponin I < 0.01 ng/ml (0.00-0.034)
[2020-07-29 22:43] LABS: Thyroid Stimulating Hormone 3.24 uIU/mL (0.465-4.68)
--- NOTE | 2020-07-29 22:50 | PC.NURSE ---
speaking with Dr. Donahue for admission
[2020-07-29 23:00] VITALS: BP 161/79; PULSE 68; RESP 15; O2SAT 93
--- NOTE | 2020-07-29 23:02 | PC.NURSE ---
[facility] accepted pt
--- NOTE | 2020-07-29 23:18 | HMH.EDGENADL ---
ED Disposition Clinical Impression: Altered mental status Qualifiers: Altered mental status type: unspecified Qualified Code(s): R41.82 - Altered mental status, unspecified Disposition: Admitted As Inpatient Condition on Discharge: Good Instructions: DI for Altered Mental Status Referrals: Gucci Donahue MD [Primary Care Provider] - - Critical Care Critical Care Time: No Attestation: On 07/29/20, the high probability of a clinically significant, sudden or life threatening deterioration of the following system(s) required my full and direct attention, intervention and personal management. The time I documented below is in addition to time spent performing reported procedures but includes the following listed in this critical care notation. Medical Decision Making - [place] Inquiry Pt receiving controlled substance: No Vital Signs: 07/29/20 18:30 07/29/20 19:11 07/29/20 20:30 Temperature 98.1 F Temperature Source Rectal Pulse Rate [Right] 69 66 71 Respiratory Rate 18 16 Blood Pressure [Right Arm] 182/92 H 154/79 H 157/83 H Blood Pressure Mean [Right Arm] 122 104 107 Blood Pressure Source [Right Arm] Automatic Cuff Automatic Cuff Blood Pressure Position [Right Arm] Sitting Sitting 02 Sat by Pulse Oximetry 95 98 97 Oxygen Delivery Method Room Air Room Air 07/29/20 21:35 07/29/20 23:00 Temperature Temperature Source Pulse Rate [Right] 73 68 Respiratory Rate 16 15 Blood Pressure [Right Arm] 171/93 H 161/79 H Blood Pressure Mean [Right Arm] 119 106 Blood Pressure Source [Right Arm] Automatic Cuff Blood Pressure Position [Right Arm] Sitting Sitting 02 Sat by Pulse Oximetry 94 L 93 L Oxygen Delivery Method Room Air Room Air - Lab Data Lab Results 07/29/20 18:50: Urine Color Yellow, Urine Appearance Clear, Urine pH 5.5, Ur Specific [place] 1.025, Urine Protein Negative, Urine Glucose (UA) Negative, Urine Ketones Negative, Urine Blood Negative, Urine Nitrate Negative, Urine Bilirubin Negative, Urine Urobilinogen 0.2, Ur Leukocyte Esterase Negative, Urine WBC Occasional, Ur Squamous Epith Cells 3-5 07/29/20 18:50: WBC 6.1, RBC 4.39, Hgb 13.6, Hct 41.4, MCV 94.2, MCH 30.9, MCHC 32.8, RDW 13.3, Plt Count 401, MPV 7.4, Neut % (Auto) 69.1, Lymph % (Auto) 14.5, [place] % (Auto) 8.8, Eos % (Auto) 6.7, Baso % (Auto) 0.9, Neut # (Auto) 4.2, Lymph # (Auto) 0.9, [place] # (Auto) 0.5, Eos # (Auto) 0.4, Baso # (Auto) 0.1 07/29/20 18:50: Sodium 137, Potassium 5.3 H, Chloride 105, Carbon Dioxide 24, Anion Gap 13.3, BUN 50 H, Creatinine 2.00 H, Estimated Creat Clear 23, Estimated GFR 24 L, Est GFR ( Amer) 29 L, Glucose 116 H, Calcium 10.5 H, Total Bilirubin 0.6, AST 47 H, ALT 32, Alkaline Phosphatase 155 H, Total Protein 7.4, Albumin 3.5, Globulin 3.9 H, Albumin/Globulin Ratio 0.9 L 07/29/20 18:50: Lactate 1.1 07/29/20 18:50: SARS-CoV-2 IgG Ab (Rapid) Positive A, SARS-CoV-2 IgM Ab (Rapid) Positive A 07/29/20 18:50: Troponin I < 0.01, TSH 3.24 07/29/20 19:45: Chlamy pneumoniae PCR Not detected, Adenovirus (PCR) Not detected, B. pertussis DNA (PCR) Not detected, Coronavirus OC43 (PCR) Not detected, Coronavirus HKU1 (PCR) Not detected, Coronavirus 229E (PCR) Not detected, SARS-CoV-2 (PCR) Not detected, Coronavirus NL63 (PCR) Not detected, Human Metapneumovir PCR Not detected, Influenza A (H1) PCR Not detected, Influ A (H1N1/09) PCR Not detected, Influenza A (H3) PCR Not detected, Influenza Type A (PCR) Not detected, Influenza Type B (PCR) Not detected, M. pneumoniae (PCR) Not detected, Parainfluenza 1 (PCR) Not detected, Parainfluenza 2 (PCR) Not detected, Parainfluenza 3 (PCR) Not detected, Parainfluenza 4 (PCR) Not detected, RSV (PCR) Not detected, Entero/Rhino (PCR) Not detected Result diagrams: 07/29/20 18:50 07/29/20 18:50 Orders (Tests/Meds): ORDERS Category Date Time Status CT head/brain wo con Stat Cat Scan 07/29/20 19:02 Taken CXR --portable [XR chest portable] Stat Exams 07/29/20 21:35 Ord
[2020-07-29 23:40] VITALS: BP 161/79; PULSE 74; RESP 16; TEMP 36.7; O2SAT 99
--- NOTE | 2020-07-29 23:47 | PC.NURSE ---
patient up to floor via stretcher.
[2020-07-30] VITALS (11 sets, daily range): BP systolic 100–176; BP diastolic 54–90; PULSE 58–74; RESP 17–20; TEMP 36.4–36.6; O2SAT 94–98; BMI 26.9
--- NOTE | 2020-07-30 01:32 | PC.NURSE ---
RLE. Scaly lesion with scab with erythema surrounding area. 1.5 cm x 2 cm.
--- NOTE | 2020-07-30 01:36 | PC.NURSE ---
(L) foot, second toe. Scaly lesion. 0.5 cm x 1 cm.
--- NOTE | 2020-07-30 04:06 | PC.NURSE ---
Pt A&O x2 and currently awake in bed. Denies any discomfort at this time. VSS. Pt remains on RA. Lungs are CTA. BS active. F/C draining to bedside with clear, yellow urine. Upon assessment, pt's skin noted to have small scaly lesions to RLE and (L) second toe. See other notes for photos. LR infusing @ 100 ml/hr. Call light within reach. Safety measures in place. Will continue to monitor.
[2020-07-30 05:26] LABS: Troponin I < 0.01 ng/ml (0.00-0.034)
--- NOTE | 2020-07-30 10:46 | HMH.HP ---
*Admission Date: 07/29/20 *Chief complaint: Altered mental status *History of present illness: Ms. Bergman was just discharged from [facility] on 07/20/2020 after treatment for UTI and dehydration. She was discharged home and since then has been living with her son. Family states she did well for the first few days at home but over the past 2 to 3 days she has become gradually weaker and unable to transfer and ambulate on her own. Appetite is been diminished. She complains of pain in her legs. She has had some confusion. Her family was concerned she was developing another urinary tract infection and she returned to the emergency room yesterday. On evaluation in the emergency room she clearly had an altered mental status. Her work-up however was fairly unremarkable. Her urine did not appear to have infection. White blood cell count was normal. Creatinine was elevated at 2.0 which is a bit above from baseline. Her chest x-ray was fairly unremarkable. CT scan of the head showed nothing acute. Her family did not feel they could adequately take care of her at home therefore she has been admitted at this time for further evaluation of her altered mental status. At the time of my exam this morning she expresses some paranoid ideations stating that the staff has been being in a full with her through the night. She has been mostly cooperative with her care. She recognizes me and and seems at ease but states that she is going home. She is oriented to name only. [facility] History Medical History: Reports:: Gastroesophageal Reflux Disease(GERD), Hyperlipidemia, Hypertension, Renal Insufficiency (Chronic) Denies:: Cancer, Diabetes Mellitus Type 2, MRSA *Have you ever received a pneumonia vaccine?: Yes *Have you received a flu vaccine this season?: Yes Other Medical History: Reports: Arthritis, Hypothyroidism, Other (+RA factor, Macular degeneration) Laterality Cases: Bilateral: Other Other Surgeries: Yes: Cholecystectomy, Colonoscopy Amputation: No Fractures: No - *Social History Last grade of school completed: 9th or 10th Smoking Status: Never smoker Alcohol Intake: never *Occupational Status:: retired Housing: house *Travel in the last 8 weeks: None Family Hx:: Hyperlipidemia, Hypertension, Kidney Disease, Thyroid Disorder Review of Systems - Constitutional Reports lack of energy, Reports weakness - Eyes Reports blurry vision, Reports irritation - ENT Reports poor balance, Denies difficulty swallowing, Denies headache(s) - *Cardiovascular Reports leg pain with activity, Reports shortness of breath, Reports generalized swelling, Denies chest pain, Denies rapid, pounding, or irregular heartbeat - *Respiratory Denies chest congestion, Denies cough - *Gastrointestinal Denies abdominal pain, Denies change in bowel habits - *Genitourinary Reports difficulty urinating, Reports painful urination - *Musculoskeletal Reports abnormal walking, Reports joint pain, Reports muscle weakness - Integumentary/Breasts Denies rash - *Neurologic Reports confusion, Reports memory loss, Reports dizziness, Reports weakness, Denies headache(s) - Psychiatric Reports anxiety, Reports confusion, Reports depression, Reports paranoia Meds Home Medications Medication Instructions Recorded Confirmed Type carvedilol 6.25 mg tablet 6.25 mg PO BID 12/28/18 07/30/20 History clonidine HCl 0.1 mg tablet 0.1 mg PO HS 12/28/18 07/29/20 History diazepam 2 mg tablet 2 mg PO HS 12/28/18 07/30/20 History levothyroxine 50 mcg capsule 50 mcg PO DAILY 12/28/18 07/29/20 History potassium chloride 20 mEq oral 20 meq PO DAILY 12/28/18 07/30/20 History packet tramadol 50 mg tablet 50 mg PO HS 12/28/18 07/30/20 History Furosemide [Lasix 40mg tablet] 40 mg PO DAILY 07/18/20 07/29/20 History Lisinopril/Hydrochlorothiazide 1 tab PO DAILY 07/18/20 07/30/20 History [Lisinopril-Hctz 20-12.5 mg Tab] Mirtazapine [Remeron] 15 mg PO HS 07/18/20
--- NOTE | 2020-07-30 10:53 | HMH.PHAVTE ---
[facility] Pharmacy VTE Monitoring - Patient Demographics Admission date: 07/30/20 Report Date: 07/30/20 Time: 10:53 Allergies/Adverse Reactions: Patient Allergies latex [LATEX] Allergy (Unknown, Verified 09/24/19 11:09) I-RASH clarithromycin Allergy (Verified 09/24/19 11:09) nausea gabapentin Allergy (Verified 09/24/19 11:09) Dizziness hydroxyzine [From Vistaril] Allergy (Verified 09/24/19 11:09) NIghtmares meloxicam Allergy (Verified 09/24/19 11:09) Dizzy prednisone Allergy (Verified 09/24/19 11:09) Sulfa (Sulfonamide Antibiotics) Allergy (Verified 09/24/19 11:09) sulfamethoxazole [From Bactrim] Allergy (Verified 09/24/19 11:09) Swelling trimethoprim [From Bactrim] Allergy (Verified 09/24/19 11:09) Swelling Height: 1.63 m Weight: 70.987 kg Patient Problems: Current Active Problems Altered mental status (Acute) - VTE Risk Labs: VTE Related Lab Results Hgb 13.6 g/dL (12.2-16.2) 07/29/20 18:50 Hct 41.4 % (37.0-47.0) 07/29/20 18:50 Plt Count 401 K/mm3 (142-424) 07/29/20 18:50 BUN 50 mg/dl (7-17) H 07/29/20 18:50 Creatinine 2.00 mg/dl (0.52-1.04) H 07/29/20 18:50 Estimated Creat Clear 23 mL/min (50-200) 07/29/20 18:50 VTE Risk Level: Low Risk - Prophylaxis Types of VTE Prophylaxis: Pharmacological Location of Applied Device: Not Applicable Pharmacologic Type: Enoxaparin (LOVENOX ORDERED)
--- NOTE | 2020-07-30 16:13 | PC.NURSE ---
Pt is currently resting in bed at this time. Remains on room air. Lungs CTA. NSR on teley. Abdomen soft, non-tender w/ active BS. No BM this shift. Voiding clear yellow urine per kiser cath. Specimen sent for UCx this shift per MD orders. Catheter care performed this shift by staff. Pt has scattered scaly areas of skin to BLE. Pt is able to position herself independently in bed. Is alert to self, place and year. Was uncooperative w/ staff this morning, telling multiple nurses to leave room and that they were being mean , multiple staff members had attempted to re-orient pt w/o success. D/t concern for pt's safety after pt had tried to get out of bed by herself multiple times 1 mg Ativan IV given per DEC. Pt has since then been resting comfortably. Will awake easily when staff in w/ pt. Bed alarm remains in place for pt's safety. Pt's sons stopped by this shift and given update. Home meds placed in pt's drawer, will pass on to following shift for pharmacy to repackage in AM. No needs at this time. LR infusing @ 100 mls/hr per DEC. Call nik w/in reach. Will continue to monitor.
--- NOTE | 2020-07-30 22:20 | PC.NURSE ---
Upon shift change , pt was agitated and was trying to get OOB. Pt stated she wanted a bath. Pt was given bath per staff and repositioned in bed. She then pulled IV out in LAC. New IV placed in RAC #22 by Bret Pennington. Pt continued to remain agitated, screaming, help me . Pt was administered ativan 1 mg IV. She is currently resting at this time. Safety measures in place. Will continue to monitor.
[2020-07-31] VITALS (7 sets, daily range): BP systolic 142–155; BP diastolic 74–82; PULSE 60–80; RESP 17–18; TEMP 36.6–37.1; O2SAT 90–98; BMI 26.8
--- NOTE | 2020-07-31 02:56 | PC.NURSE ---
Pt has slept at intervals this shift, but has been less restless this am. She remains confused. A&O to self. New IV was placed last night after pt pulled existing IV out. Pt did not tolerate well. New IV has remained in place thus far. LR infusing @ 100 ml/hr. Pt administered ativan IV x1. VSS. F/C draining to bedside with clear, yellow urine. No other concerns at this time. Will continue to monitor.
[2020-07-31 06:10] LABS: Basophils % 0.7 % (0.1-2.0); Eosinophils # 0.4 K/mm3 (0.0-0.4); Eosinophils % 7.8 % (0.1-12.0); Hematocrit 40.8 % (37.0-47.0); Hemoglobin 13.5 g/dL (12.2-16.2); Lymphocytes # 1.1 K/mm3 (0.7-4.5); Lymphocytes % 24.8 % (10-50); Mean Corpuscular Hemoglobin 30.1 pg (27.0-31.2); Mean Corpuscular Volume 91.2 fl (81-99); Mean Platelet Volume 7.6 fl (7.4-10.4); Monocytes # 0.5 K/mm3 (0.1-1.0); Neutrophils # 2.6 K/mm3 (1.8-7.8); Neutrophils % 56.7 % (37.0-80.0); Platelet Count 367 K/mm3 (142-424); Red Blood Count 4.48 M/mm3 (4.20-5.40); Red Cell Distribution Width 13.6 % (11.5-17.5); White Blood Count 4.6 K/mm3 (4.8-10.8)
[2020-07-31 06:21] LABS: Chloride 110 mmol/L (98-107); Potassium 4.8 mmoL/L (3.5-5.1); Sodium 139 mmol/L (136-145)
[2020-07-31 06:23] LABS: Blood Urea Nitrogen 36 mg/dl (7-17); Creatinine Clearance Estimated 33 mL/min (50-200); Estimated Glomerular Filt Rate 33 ml/min (>60); GFR (African American) 40 ML/MIN (>60)
[2020-07-31 06:24] LABS: Alanine Aminotransferase 21 U/L (12-78); Albumin Level 2.8 g/dl (3.5-5.0); Albumin/Globulin Ratio 0.9 (1.1-1.8); Alkaline Phosphatase 104 U/L (38-126); Anion Gap 8.8 mEq/L (5-15); Aspartate Amino Transferase 35 U/L (14-36); Bilirubin,Total 0.5 mg/dl (0.2-1.3); Calcium 9.5 mg/dl (8.4-10.2); Carbon Dioxide 25 mmol/L (22.0-30.0); Globulin 3.2 g/dL (1.3-3.2); Glucose 83 mg/dl (74-100)
--- NOTE | 2020-07-31 06:24 | PC.NURSE ---
Pt refused to take synthroid. Medication wasted.
--- NOTE | 2020-07-31 08:05 | PC.NURSE ---
Dr. Donahue here to see pt. V/O received to discontinue telemetry monitoring. R/V.
[2020-07-31 09:09] LABS: Uric Acid 10.3 mg/dl (2.5-6.2)
--- NOTE | 2020-07-31 09:37 | HMH.ACPN2 ---
<Bertha Hsu - Last Filed: 07/31/20 09:42> Internal Medicine - PN: Subj *Date: 07/31/20 *Time: 09:42 Interval history: Pt is resting quietly in bed. She does seem confused and has some mumbling speech. She denies pain when asked. Exam Vital signs and Labs for Last 24 Hours: Temp Pulse Resp BP Pulse Ox 98.8 F 75 18 155/74 H 95 07/31/20 07:39 07/31/20 07:39 07/31/20 07:39 07/31/20 07:39 07/31/20 07:39 Laboratory Results - last 24 hr 07/31/20 05:55: WBC 4.6 L, RBC 4.48, Hgb 13.5, Hct 40.8, MCV 91.2, MCH 30.1, MCHC 33.0, RDW 13.6, Plt Count 367, MPV 7.6, Neut % (Auto) 56.7, Lymph % (Auto) 24.8, [place] % (Auto) 10.0 H, Eos % (Auto) 7.8, Baso % (Auto) 0.7, Neut # (Auto) 2.6, Lymph # (Auto) 1.1, [place] # (Auto) 0.5, Eos # (Auto) 0.4, Baso # (Auto) 0.0 07/31/20 05:55: Sodium 139, Potassium 4.8, Chloride 110 H, Carbon Dioxide 25, Anion Gap 8.8, BUN 36 H D, Creatinine 1.50 H D, Estimated Creat Clear 33, Estimated GFR 33 L, Est GFR ( Amer) 40 L D, Glucose 83, Uric Acid 10.3 H, Calcium 9.5, Total Bilirubin 0.5, AST 35 D, ALT 21 D, Alkaline Phosphatase 104, Total Protein 6.0 L, Albumin 2.8 L D, Globulin 3.2, Albumin/Globulin Ratio 0.9 L I & O for Last 24 hours: Intake & Output 07/28/20 07/29/20 07/30/20 07/31/20 11:59 11:59 11:59 11:59 Intake Total 360 / 360 1654 / 1654 Output Total 1250 / 1250 700 / 700 Balance -890 / -890 954 / 954 Weight 156 lb 8 oz 157 lb - Constitutional no acute distress - *Routine HEENT Exam Head: Present: normocephalic ENT: Present: mucous membranes moist - *Routine Respiratory Exam Present: CTA bilaterally - *Routine Cardiovascular Exam Present: RRR - *Routine Abdominal Exam Present: soft, normoactive bowel sounds. Absent: tenderness, distended, guarding, firm, rigid - *Routine Extremities Exam Present: full ROM, pulses intact. Absent: calf tenderness Comments: trace BLE edema - *Routine Neurological Exam Present: alert, moving all extremities confused and mumbling speech Assessment and Plan (1) Altered mental status Status: Acute Qualifiers: Altered mental status type: unspecified Qualified Code(s): R41.82 - Altered mental status, unspecified Category: Medical Code(s): R41.82 - Altered mental status, unspecified (2) Delirium Status: Acute Category: Medical Code(s): R41.0 - Disorientation, unspecified (3) Dehydration Status: Acute Category: Medical Code(s): E86.0 - Dehydration (4) Chronic renal insufficiency Status: Acute Category: Medical Code(s): N18.9 - Chronic kidney disease, unspecified (5) Hypothyroidism Status: Acute Category: Medical Code(s): E03.9 - Hypothyroidism, unspecified (6) Hypertension Status: Acute Category: Medical Code(s): I10 - Essential (primary) hypertension (7) Debilitated Status: Acute Category: Medical Code(s): R53.81 - Other malaise (8) Hyperuricemia Status: Acute Category: Medical Code(s): E79.0 - Hyperuricemia without signs of inflammatory arthritis and tophaceous disease (9) Hyperuricemia Status: Acute Category: Medical Code(s): E79.0 - Hyperuricemia without signs of inflammatory arthritis and tophaceous disease - Assessment and plan all Dx Assessment and Plan for all problems:: Per Dr. Donahue. <Gucci Donahue - Last Filed: 07/31/20 11:21> Internal Medicine - PN: Subj *Date: 07/31/20 Exam Vital signs and Labs for Last 24 Hours: Temp Pulse Resp BP Pulse Ox 98.8 F 80 18 155/74 H 95 07/31/20 07:39 07/31/20 08:00 07/31/20 07:39 07/31/20 07:39 07/31/20 07:39 Laboratory Results - last 24 hr 07/31/20 05:55: WBC 4.6 L, RBC 4.48, Hgb 13.5, Hct 40.8, MCV 91.2, MCH 30.1, MCHC 33.0, RDW 13.6, Plt Count 367, MPV 7.6, Neut % (Auto) 56.7, Lymph % (Auto) 24.8, [place] % (Auto) 10.0 H, Eos % (Auto) 7.8, Baso % (Auto) 0.7, Neut # (Auto) 2.6, Lymph # (Auto) 1.1, [place] # (Auto) 0.5, Eos # (Auto) 0.4, Baso # (Aut
--- NOTE | 2020-07-31 09:47 | PC.NURSE ---
Pt sleeping soundly at this time. No distress noted.
--- NOTE | 2020-07-31 09:58 | SW/DCPLANNER ---
Addendum entered by Meghna Bell 08/01/20 13:29: Dr Donahue has stated that this patient is stable for discharge to [facility]. I have informed Janet at [facility] and patient information has been faxed. Patients nurse (Maritza Couch) will be calling report to [facility] on [place]. I have also notified patient son (Urbano) whom stated he is fixing to be at [facility]. Addendum entered by Meghna Bell 08/01/20 09:50: I have informed Janet that patient could discharge later today or tomorrow pending urine cultures. I have faxed updated patient information to [facility]. No further COVID testing needed prior to discharge. Addendum entered by Evelyn Martinez 08/01/20 08:45: MADE ROUNDS WITH DR DONAHUE THIS MORNING, PATIENT WAS AWAKE AND ALERT BUT SLOW TO SPEAK... DR DONAHUE IS TAKING HER CATHETER OUT TODAY AND WAITING ON PENDING URINE CULTURE PRIOR TO DISCHARGING TO [facility].. SHE HAS REQUESTED A BATH, I SHARED THIS WITH HER DOMESTIC VIOLENCE COUNSELOR ONCE CULTURE IS BACK AND ON THE APPROPRIATE ANTIBIOTIC, SHE WILL DISCHARGE.. Addendum entered by Meghna Bell 07/31/20 14:30: CORRECTION: Dr Donahue has stated possible discharge on Friday. I have made son and Ankit Adilson aware. Addendum entered by Meghna Bell 07/31/20 14:14: This patient has been accepted to [facility] and family agrees with this plan. I have informed MD. Patient could potentially be ready for discharge tomorrow. I will continue to follow up with MD, family and [facility]. Addendum entered by Meghna Bell 07/31/20 12:45: Per family request patient information has been faxed to Janet at [facility]. Original Note: I have spoke with patients son (Urbano) regarding discharge plans. Urbano stated that patient resides at home with him and his sister also assist in caring for patient. Urbano stated that they are unsure about discharge plans but I have discussed a few discharge options with Urbano. Discharge options I have discussed are: home with home health, placement (both Medicare and private pay if patient can not cooperate with therapy) and Urbano did mention Hospice services. I have informed Urbano that PT has been ordered for today then I will follow up with him once PT evaluates this patient.
--- NOTE | 2020-07-31 12:13 | HMH.PTEV ---
Physical Therapy Evaluation Rehab PT IP Evaluation Start: 07/31/20 09:43 Freq: .once Status: Active Protocol: Document 07/31/20 12:10 PHORCHARANJIT (Rec: 07/31/20 12:13 PHORNE [id number]) Subjective/History History History Pt is 84 yowf adm to [facility] with general weakness and AMS. Pt is unable to answer any questions about PLF at this time due to AMS. Subjective Subjective Pt screams when moving or being moved, but is unable to localize any pain. Rehab PT IP Eval Objective Appearance Patient Behavior Uncooperative,Confused Patient Orientation Person Difficulty following instructions moderate Speech Pattern Mumbled Ambulation Patient Able to Ambulate No Balance Ability to Arise Unable Sitting Balance Leans or slides in chair Dynamic Sitting Balance Ability Poor Transfers Bed Transfer Ability Maximum x 1 (75% assist) ROM All Extremities PT ROM Status WFL MMT All Extremities PT MMT ABN Abnormal MMT Grade grossly 3/5 Rehab PT IP prob,goals,plan Problems Date of Evaluation: 07/31/20 PT IP Problems Bed Mobility,Transfers,Gait Rehab Potential Rehab Potential Fair Plan PT Intervention Plan Bed Mobility,Transfers,Gait, Therapeutic Exercise PT Plan Frequency Daily Duration LOS Discharge Goals Bed Transfer Ability Moderate x 1 (50% assist) Sit to Stand Chair Transfer Ability Moderate x 1 (50% assist) Ambulation Assistive Device Rolling Walker Ambulation Distance (feet) 3 Discharge Plan PT Discharge Plan Pt is most appropriate for SNF placement at this time due to safety concerns and AMS. G -code Required No Eval Complexity Eval Charge Codes 34150 - High Complexity PHYSICIAN CERTIFICATION: I certify the specified therapy services for Cindy Bergman are required, authorized, and reviewed every 30 days.
--- NOTE | 2020-07-31 12:30 | PC.NURSE ---
Pt sleeping soundly at this time. Family member sitting at bs watching tv.
--- NOTE | 2020-07-31 15:43 | PC.NURSE ---
Pt's son at bs visiting. Pt now awake and cold. 2 warm blankets provided.
--- NOTE | 2020-07-31 16:46 | PC.NURSE ---
Pt awaken briefly to talk with son. Very drowsy and quicky back to sleep.
--- NOTE | 2020-07-31 16:51 | PC.NURSE ---
155ml bright red blood emptied from JALEESA drain since pt's arrival to the floor.
--- NOTE | 2020-07-31 19:17 | PC.NURSE ---
report given to griselda
[2020-08-01 04:00] VITALS: BP 169/86; PULSE 75; RESP 16; TEMP 36.6; O2SAT 92
[2020-08-01 05:00] VITALS: BMI 27.2
--- NOTE | 2020-08-01 05:18 | PC.NURSE ---
Pt is A&O to person. Pt has turned or been turned by staff q2hr and tolerated well. Pt has slept in long intervals. Lungs CTA. Pt denies any pain. Sinclair cath draining clear ylw urine to gravity. ABD is soft, non-tender and with active BSx4. Pt tolerated swallowing pills well and had several cups of water t/o the night. Bed alarm active. Call light within reach, will continue to monitor.
[2020-08-01 07:46] VITALS: BP 187/93; PULSE 76; RESP 17; TEMP 36.6; O2SAT 96
--- NOTE | 2020-08-01 08:35 | HMH.ACPN2 ---
<Xiomara Fowler - Last Filed: 08/01/20 08:35> Internal Medicine - PN: Subj *Date: 08/01/20 *Time: 08:35 Interval history: Patient states she does not feel well today and she does not know why. She would like to go to the bathroom. She does not realize that she has a Sinclair catheter. She is tearful at times. She is trying to eat her breakfast but states she has no appetite. She denies chest pain and shortness of air. Exam Vital signs and Labs for Last 24 Hours: Temp Pulse Resp BP Pulse Ox 97.8 F 76 17 187/93 H 96 08/01/20 07:46 08/01/20 07:46 08/01/20 07:46 08/01/20 07:46 08/01/20 07:46 Laboratory Results - last 24 hr 07/31/20 05:55: Uric Acid 10.3 H I & O for Last 24 hours: Intake & Output 07/29/20 07/30/20 07/31/20 08/01/20 11:59 11:59 11:59 11:59 Intake Total 360 / 360 1654 / 1654 2889 / 2889 Output Total 1250 / 1250 700 / 700 2080 / 2080 Balance -890 / -890 954 / 954 809 / 809 Weight 156 lb 8 oz 157 lb 159 lb 6 oz Microbiology Reports for the Last 24 Hours: Microbiology 07/29/20 18:50 Blood Blood Culture - Preliminary NO GROWTH AFTER 48 HOURS 07/29/20 18:50 Blood Blood Culture - Preliminary NO GROWTH AFTER 48 HOURS 07/30/20 15:42 Urine,Sinclair Port Urine Culture - Preliminary NO GROWTH AFTER 24 HOURS - Constitutional no acute distress Comments: Sitting up in the bed trying to eat her breakfast - *Routine Respiratory Exam Present: crackles (Bibasilar) - *Routine Cardiovascular Exam Present: RRR - *Routine Abdominal Exam Present: soft, normoactive bowel sounds. Absent: tenderness - *Routine Extremities Exam Absent: edema, calf tenderness - *Routine Neurological Exam Present: alert. Absent: oriented X3 Assessment and Plan (1) Altered mental status Status: Acute Qualifiers: Altered mental status type: unspecified Qualified Code(s): R41.82 - Altered mental status, unspecified Category: Medical Code(s): R41.82 - Altered mental status, unspecified (2) Delirium Status: Acute Category: Medical Code(s): R41.0 - Disorientation, unspecified (3) Dehydration Status: Acute Category: Medical Code(s): E86.0 - Dehydration (4) Chronic renal insufficiency Status: Acute Category: Medical Code(s): N18.9 - Chronic kidney disease, unspecified (5) Hypothyroidism Status: Acute Category: Medical Code(s): E03.9 - Hypothyroidism, unspecified (6) Hypertension Status: Acute Category: Medical Code(s): I10 - Essential (primary) hypertension (7) Debilitated Status: Acute Category: Medical Code(s): R53.81 - Other malaise (8) Hyperuricemia Status: Acute Category: Medical Code(s): E79.0 - Hyperuricemia without signs of inflammatory arthritis and tophaceous disease (9) Hyperuricemia Status: Acute Category: Medical Code(s): E79.0 - Hyperuricemia without signs of inflammatory arthritis and tophaceous disease - Assessment and plan all Dx Assessment and Plan for all problems:: Renal function has improved. Physical therapy did try to work with patients yesterday. Urine culture and blood cultures are negative. pt is stable to be transferred to [facility] today for ongoing rehab and care. <Gucci Donahue - Last Filed: 08/01/20 14:04> Internal Medicine - PN: Subj *Date: 08/01/20 *Time: 14:02 Exam Vital signs and Labs for Last 24 Hours: Temp Pulse Resp BP Pulse Ox 97.8 F 76 17 187/93 H 96 08/01/20 07:46 08/01/20 07:46 08/01/20 07:46 08/01/20 07:46 08/01/20 07:46 I & O for Last 24 hours: Intake & Output 07/30/20 07/31/20 08/01/20 08/02/20 11:59 11:59 11:59 11:59 Intake Total 360 / 360 1654 / 1654 2889 / 2889 240 / 240 Output Total 1250 / 1250 700 / 700 2180 / 2180 Balance -890 / -890 954 / 954 709 / 709 240 / 240 Weight 156 lb 8 oz 157 lb 159 lb 6 oz
--- NOTE | 2020-08-01 09:08 | HMH.DCSUM ---
General - General Admission date:: 07/29/20 <Gucci Donahue - 08/05/20 08:52> 07/29/20 <Xiomara Fowler - 08/01/20 09:25> Discharge date: 08/01/20 <JanethXiomara - 08/01/20 09:25> HPI HPI: Ms. Bergman was just discharged from [facility] on 07/20/2020 after treatment for UTI and dehydration. She was discharged home and since then has been living with her son. Family stated that she did well for the first few days at home but over the past 2 to 3 days she has become gradually weaker and unable to transfer and ambulate on her own. Appetite was diminished. She complained of pain in her legs. She had some confusion. Her family was concerned she was developing another urinary tract infection and she returned to the emergency room. On evaluation in the emergency room she clearly had an altered mental status. Her work-up however was fairly unremarkable. Her urine did not appear to have infection. White blood cell count was normal. Creatinine was elevated at 2.0 which was a bit above from baseline. Her chest x-ray was fairly unremarkable. CT scan of the head showed nothing acute. Her family did not feel they could adequately take care of her at home. Therefore she was admitted for further evaluation of her altered mental status. At the time of my exam the following morning she expressed some paranoid ideations. She had been mostly cooperative with her care. She recognized me and and seemed at ease but stated that she was going home. She was oriented to name only. <Xiomara Fowler - 08/01/20 09:25> Hospital Course Hospital Course: With dehydration patient was given IV fluids at 100/hR. Urine culture was repeated due to recent urinary tract infection and eventually reported as negative. Care management was consulted on admission. Patient did become more confused with some agitation. She received Ativan which seemed to help although made her drowsy. She was also paranoid and initially refused p.o. medicines. She was started on Haldol twice daily. She was hypertensive and was continued on her hydrochlorothiazide, carvedilol, lisinopril. She was started on allopurinol for elevated uric acid. On 08/01/2020 patient remained confused but was oriented to her name. She was slightly tearful. Therapy did try to work with her the previous day. Renal function did improve and CBC remained stable. Bed was obtained [facility]. On this date she was stable for transfer to this facility for ongoing rehab and care. Sinclair catheter was removed. Discharged to [facility] in stable and satisfactory condition. She will continue with PT and OT. Blood pressure will be monitored there as well. <Xiomara Fowler - 08/01/20 09:25> Objective Vital signs: Temp Pulse Resp BP Pulse Ox 97.8 F 76 17 187/93 H 96 08/01/20 07:46 08/01/20 07:46 08/01/20 07:46 08/01/20 07:46 08/01/20 07:46 <Gucci Donahue - 08/05/20 08:52> Temp Pulse Resp BP Pulse Ox 97.8 F 76 17 187/93 H 96 08/01/20 07:46 08/01/20 07:46 08/01/20 07:46 08/01/20 07:46 08/01/20 07:46 <Xiomara Fowler - 08/01/20 09:25> Narrative: Exam Vital signs and Labs for Last 24 Hours: Temp Pulse Resp BP Pulse Ox 97.8 F 76 17 187/93 H 96 08/01/20 07:46 08/01/20 07:46 08/01/20 07:46 08/01/20 07:46 08/01/20 07:46 Laboratory Results - last 24 hr 07/31/20 05:55: Uric Acid 10.3 H I & O for Last 24 hours: Intake & Output 07/29/20 07/30/20 07/31/20 08/01/20 11:59 11:59 11:59 11:59 Intake Total 360 / 360 1654 / 1654 2889 / 2889 Output Total 1250 / 1250 700 / 700 2080 / 2080 Balance -890 / -890 954 / 954 809 / 809 Weight 156 lb 8 oz 157 lb 159 lb 6 oz Microbiology Reports for the Last 24 Hours: Microbiology 07/29/20 18:50 Blood Blood Culture - Preliminary NO GROWTH AFTER 48 HOURS 07/29/20 18:50 Blood Blo
--- NOTE | 2020-08-01 14:12 | PC.NURSE ---
1410 Report called to EROS Ordaz at [facility].
--- NOTE | 2020-08-01 14:22 | PC.NURSE ---
1415 Ambulance services notified of need for transport to correction.
--- NOTE | 2020-08-01 14:45 | PC.NURSE ---
1433 EMS here for transport, report given. 1445 Pt leaving department with EMS for transport to [facility].
== END 2020-08-01 14:45 ==
LOC: ER 20:14 → 2ND 23:23
PROVIDERS: Emergency Medicine; Admitting Provider Family Medicine; Emergency Provider Emergency Medicine; PCP Family Medicine; Visit Provider Family Medicine
DX: N39.0 Urinary tract infection, site not specified (principal); B96.20 Unspecified Escherichia coli [E. coli] as the cause of diseases classified elsewhere; E86.0 Dehydration; R41.0 Disorientation, unspecified; Z86.19 Personal history of other infectious and parasitic diseases; I13.0 Hypertensive heart and chronic kidney disease with heart failure and stage 1 through stage 4 chronic kidney disease, or unspecified chronic kidney disease; N18.9 Chronic kidney disease, unspecified; E03.9 Hypothyroidism, unspecified; E79.0 Hyperuricemia without signs of inflammatory arthritis and tophaceous disease
CPT/HCPCS: 36415; 70450; 71045; 80053; 81001; 83605; 84443; 84484; 84550; 85025; 86328; 87040; 87086; 87581; 87633; 87798; 97163; 99284; G0378

== ENCOUNTER 2020-08-29 17:29 | Inpatient (IN) | payer MEDICARE, BC, SELFPAY ==
[2020-08-29 17:30] VITALS: BP 130/62; PULSE 65; RESP 17; TEMP 36.8; O2SAT 95; BMI 17.5
[2020-08-29 17:46] LABS: Basophils % 0.5 % (0.1-2.0); Eosinophils # 0.2 K/mm3 (0.0-0.4); Eosinophils % 2.1 % (0.1-12.0); Hematocrit 41.2 % (37.0-47.0); Hemoglobin 13.7 g/dL (12.2-16.2); Lymphocytes % 10.9 % (10-50); Mean Corpuscular HGB Conc 33.2 g/dL (31.8-35.4); Mean Corpuscular Hemoglobin 31.9 pg (27.0-31.2); Mean Corpuscular Volume 95.9 fl (81-99); Mean Platelet Volume 8.2 fl (7.4-10.4); Monocytes # 0.4 K/mm3 (0.1-1.0); Monocytes % 4.6 % (1.7-9.3); Neutrophils # 7.2 K/mm3 (1.8-7.8); Neutrophils % 81.9 % (37.0-80.0); Platelet Count 293 K/mm3 (142-424); Red Blood Count 4.29 M/mm3 (4.20-5.40); Red Cell Distribution Width 15.7 % (11.5-17.5); White Blood Count 8.7 K/mm3 (4.8-10.8)
[2020-08-29 17:54] LABS: Chloride 104 mmol/L (98-107); Potassium 4.6 mmoL/L (3.5-5.1); Sodium 140 mmol/L (136-145)
[2020-08-29 17:56] LABS: Alanine Aminotransferase 24 U/L (12-78); Alkaline Phosphatase 107 U/L (38-126); Anion Gap 13.6 mEq/L (5-15); Aspartate Amino Transferase 37 U/L (14-36); Bilirubin,Total 0.6 mg/dl (0.2-1.3); Carbon Dioxide 27 mmol/L (22.0-30.0); Creatinine Clearance Estimated 12 mL/min (50-200); Estimated Glomerular Filt Rate 18 ml/min (>60); GFR (African American) 21 ML/MIN (>60)
[2020-08-29 17:57] LABS: Albumin Level 3.6 g/dl (3.5-5.0); Albumin/Globulin Ratio 1.1 (1.1-1.8); Calcium 9.9 mg/dl (8.4-10.2); Globulin 3.4 g/dL (1.3-3.2); Glucose 169 mg/dl (74-100)
--- NOTE | 2020-08-29 17:58 | HMH.EDGENADL ---
ED Disposition Clinical Impression: Acute kidney injury, Dehydration, Cystitis Disposition: Admitted as Observation Condition on Discharge: Fair Referrals: Provider,Referral, [Referring] - - Critical Care Critical Care Time: Yes Attestation: On 08/29/20, the high probability of a clinically significant, sudden or life threatening deterioration of the following system(s) required my full and direct attention, intervention and personal management. The time I documented below is in addition to time spent performing reported procedures but includes the following listed in this critical care notation. Total Critical Care Time: 30 Vital system(s) involved:: Renal Failure My critical care processes included: Assessment & monitoring of V/S, Initial and Re-exams, Data Review/Interpretation, Coordinating Care, Medication Orders and management, Documentation Medical Decision Making - Devon Inquiry Pt receiving controlled substance: No Vital Signs: 08/29/20 17:30 08/29/20 18:08 08/29/20 18:53 Temperature 98.2 F Temperature Source Oral Pulse Rate [Right Radial] 65 63 62 Respiratory Rate 17 18 16 Blood Pressure [Right Arm] 130/62 100/60 L 110/62 Blood Pressure Mean [Right Arm] 84 73 78 Blood Pressure Source [Right Arm] Automatic Cuff Automatic Cuff Blood Pressure Position [Right Arm] Sitting 02 Sat by Pulse Oximetry 95 98 99 Oxygen Delivery Method Nasal Cannula Room Air Oxygen Flow Rate (LPM) 2 - Lab Data Lab Results 08/29/20 17:01: Total Creatine Kinase 177 H, Troponin I < 0.01, TSH 6.78 H 08/29/20 17:01: Magnesium 2.2 08/29/20 17:15: WBC 8.7, RBC 4.29, Hgb 13.7, Hct 41.2, MCV 95.9, MCH 31.9 H, MCHC 33.2, RDW 15.7, Plt Count 293, MPV 8.2, Neut % (Auto) 81.9 H, Lymph % (Auto) 10.9, Carroll % (Auto) 4.6, Eos % (Auto) 2.1, Baso % (Auto) 0.5, Neut # (Auto) 7.2, Lymph # (Auto) 1.0, Carroll # (Auto) 0.4, Eos # (Auto) 0.2, Baso # (Auto) 0.0 08/29/20 17:15: Sodium 140, Potassium 4.6, Chloride 104, Carbon Dioxide 27, Anion Gap 13.6, BUN 98 H, Creatinine 2.60 H, Estimated Creat Clear 12, Estimated GFR 18 L*, Est GFR ( Amer) 21 L, Glucose 169 H, Calcium 9.9, Total Bilirubin 0.6, AST 37 H, ALT 24, Alkaline Phosphatase 107, Total Protein 7.0, Albumin 3.6, Globulin 3.4 H, Albumin/Globulin Ratio 1.1 08/29/20 17:15: SARS-CoV-2 IgG Ab (Rapid) Positive A, SARS-CoV-2 IgM Ab (Rapid) Negative 08/29/20 18:47: Urine Color Yellow, Urine Appearance Sl cloudy, Urine pH 6.0, Ur Specific Carson 1.020, Urine Protein Negative, Urine Glucose (UA) Negative, Urine Ketones Negative, Urine Blood 1+, Urine Nitrate Negative, Urine Bilirubin Negative, Urine Urobilinogen 0.2, Ur Leukocyte Esterase 2+ A, Urine RBC Occasional, Urine WBC 10-20, Ur Squamous Epith Cells 3-5, Urine Bacteria 1+, Hyaline Casts 3-5 Result diagrams: 08/29/20 17:15 08/29/20 17:15 Orders (Tests/Meds): ED MEDICATIONS Generic Name Dose Route Start Last Admin Trade Name Freq PRN Reason Stop Dose Admin Ertapenem 1 gm/ Sodium 50 mls @ 100 mls/hr 08/29/20 20:30 Chloride IV 09/12/20 20:29 Q24H INGRID Protocol Discontinued Medications Generic Name Dose Route Start Last Admin Trade Name Freq PRN Reason Stop Dose Admin Sodium Chloride 1,000 ml 08/29/20 18:18 08/29/20 18:31 Sodium Chloride 0.9% 1000ml Bag IV 08/29/20 18:19 1,000 ml BOLUS ONE Administration ORDERS Category Date Time Status CT abdomen pelvis wo con Stat Cat Scan 08/29/20 19:39 Taken XR chest portable Stat Exams 08/29/20 18:15 Taken Troponin I Q3H Lab 08/29/20 21:15 Ordered Troponin I Q3H Lab 08/30/20 00:15 Ordered Urine Culture Stat Micro 08/29/20 18:47 Received - CT Data CT Scan: Abdomen, Pelvis Time Received: 20:34 ([facility] fax) Findings Narrative: Constipation Bilateral kidneys are within normal range No small bowel obstruction Cholecystectomy Moderate hiatal hernia - ECG Data Tracing #1 EKG interpreted by Gustavo Amezcua MD: Rhythm: s
[2020-08-29 17:59] LABS: Blood Urea Nitrogen 98 mg/dl (7-17)
[2020-08-29 18:08] VITALS: BP 100/60; PULSE 63; RESP 18; O2SAT 98
--- NOTE | 2020-08-29 18:14 | ECG_ITS ---
APPROVED REPORT Exam: Resting ECG HR:64 bpm ECG Measurements Heart Rate [address] 156 P 52 QRSd 76 QRS 20 QT 422 T 36 QTc 435 Conclusion Normal sinus rhythm Nonspecific ST abnormality Abnormal ECG Electronically signed by : Brad Adams, 08/30/2020 07:25:32
--- NOTE | 2020-08-29 18:15 | XR_ITS ---
PROCEDURE: XR CHEST PORTABLE CLINICAL HISTORY: ARF Acute renal failure, weakness, confusion COMPARISON: CR CXR1 CHEST-PORTABLE from 04/10/2013 CR CXR2 CHEST-AP VIEW ONLY from 05/03/2016 CR XR CHEST PORTABLE from 07/29/2020 FINDINGS: Moderate patient rotation. There is a hiatal hernia. Unremarkable cardiovascular structures with clear lungs. The lungs are clear without infiltrates, suspicious nodules, or pleural effusions. No acute bony abnormalities. IMPRESSION: No acute findings. Dictated by: Shaun Tadeo MD 08/30/2020 05:20 Shaun Tadeo MD in OV 08/30/2020 05:20
[2020-08-29 18:33] LABS: Creatine Kinase 177 U/L (30-135)
[2020-08-29 18:34] LABS: Magnesium 2.2 mg/dl (1.6-2.3)
[2020-08-29 18:47] LABS: Troponin I < 0.01 ng/ml (0.00-0.034)
[2020-08-29 18:49] LABS: Microscopic, Urine URINE MICROSCOPIC (MICROSCOPIC)
[2020-08-29 18:51] LABS: Appearance,Urine SL CLOUDY (Clear); Bilirubin,Urine Negative (Negative); Blood, Urine 1+ (Negative); Color,Urine YELLOW (Yellow); Glucose,Urine (UA) Negative (Negative); Ketones,Urine Negative (Negative); Leukocyte Esterase,Urine 2+ (Negative); Nitrate,Urine Negative (Negative); Protein,Urine Negative (Negative); Urobilinogen,Urine 0.2 EU/dl (0.2)
[2020-08-29 18:53] VITALS: BP 110/62; PULSE 62; RESP 16; O2SAT 99
[2020-08-29 19:32] LABS: Thyroid Stimulating Hormone 6.78 uIU/mL (0.465-4.68)
--- NOTE | 2020-08-29 19:39 | CT_ITS ---
PROCEDURE: CT ABDOMEN PELVIS WO CON CLINICAL INDICATION: uropathy Possible renal failure COMPARISON: CT ABDPELW/O CT ABD PELVIS W/O CONTRAST from 01/06/2015 TECHNIQUE: Axial images obtained with sagittal and coronal reformats. All CT scans at the facility use one or more dose reduction, viz: automated exposure control, ma/kV adjustment per patient size (including targeted exams where dose is matched to indication, i.e. head), or iterative reconstruction technique. FINDINGS: LOWER THORAX: There is moderate-sized hiatal hernia with mild bibasilar atelectasis. ABDOMEN & PELVIS: The liver, spleen, the adrenal glands, and pancreas have an unremarkable unenhanced appearance. No obvious renal or ureteral calculi. No hydronephrosis. Prior cholecystectomy. No intestinal obstruction or free air. No evidence of appendicitis. There is a moderate amount of retained colonic feces in the rectosigmoid region consistent with fecal impaction. The rectum measures 7.7 cm in diameter. There is a Sinclair catheter present. Colonic diverticulosis without diverticulitis. There is exaggeration of the lumbar lordosis. Degenerative changes are present in the thoracic and lumbar spine. IMPRESSION: 1. Constipation with rectal fecal impaction 2. Hiatal hernia. 3. Otherwise negative. No renal or ureteral calculi or hydronephrosis or obvious renal mass on this unenhanced exam. Dictated by: Shaun Tadeo MD 08/30/2020 06:06 Shaun Tadeo MD in OV 08/30/2020 06:06
[2020-08-29 19:51] LABS: Bacteria,Urine 1+ /lpf; RBC,Urine Occasional #/hpf (0-3)
[2020-08-29 20:04] LABS: Coronavirus 19 IgG Antibody Positive (Negative); Coronavirus 19 IgM Antibody Negative (Negative)
[2020-08-29 21:19] VITALS: BMI 24.5
[2020-08-29 22:30] VITALS: BP 110/62; PULSE 62; RESP 16; TEMP 36.8; O2SAT 99
--- NOTE | 2020-08-29 23:24 | PC.NURSE ---
Bedside report given to Carmen COONEY transported up via stretcher
--- NOTE | 2020-08-29 23:26 | PC.NURSE ---
PT ARRIVED TO THE FLOOR VIA STRETCHER FROM ED W/STAFF AT 1176
[2020-08-30] VITALS (7 sets, daily range): BP systolic 101–135; BP diastolic 43–84; PULSE 66–89; RESP 14–20; TEMP 36.2–36.6; O2SAT 93–100; BMI 25.0
--- NOTE | 2020-08-30 03:44 | PC.NURSE ---
pt is alert to self. pt received one time dose of Haldol for agitation.f/c draining yellow cloudy urine. 20LFA infusing NS @ 100. pt rested quietly in bed. bed alarm activated.
[2020-08-30 06:54] LABS: Chloride 108 mmol/L (98-107); Potassium 3.7 mmoL/L (3.5-5.1); Sodium 141 mmol/L (136-145)
[2020-08-30 06:57] LABS: Anion Gap 12.7 mEq/L (5-15); Calcium 9.3 mg/dl (8.4-10.2); Carbon Dioxide 24 mmol/L (22.0-30.0); Creatinine Clearance Estimated 22 mL/min (50-200); Estimated Glomerular Filt Rate 24 ml/min (>60); GFR (African American) 29 ML/MIN (>60); Glucose 104 mg/dl (74-100)
[2020-08-30 07:16] LABS: Blood Urea Nitrogen 85 mg/dl (7-17)
--- NOTE | 2020-08-30 07:46 | HMH.PHAVTE ---
[facility] Pharmacy VTE Monitoring - Patient Demographics Admission date: 08/30/20 Report Date: 08/30/20 Time: 07:46 Allergies/Adverse Reactions: Patient Allergies latex [LATEX] Allergy (Unknown, Verified 08/29/20 17:34) I-RASH clarithromycin Allergy (Verified 08/29/20 17:34) nausea gabapentin Allergy (Verified 08/29/20 17:34) Dizziness hydroxyzine [From Vistaril] Allergy (Verified 08/29/20 17:34) NIghtmares meloxicam Allergy (Verified 08/29/20 17:34) Dizzy prednisone Allergy (Verified 08/29/20 17:34) Sulfa (Sulfonamide Antibiotics) Allergy (Verified 08/29/20:34) sulfamethoxazole [From Bactrim] Allergy (Verified 08/29/20 17:34) Swelling trimethoprim [From Bactrim] Allergy (Verified 08/29/20 17:34) Swelling Height: 1.6 m Weight: 63.957 kg Patient Problems: Current Active Problems Dehydration (Acute) Acute kidney injury (Acute) Cystitis (Acute) - VTE Risk Labs: VTE Related Lab Results Hgb 13.7 g/dL (12.2-16.2) 08/29/20 17:15 Hct 41.2 % (37.0-47.0) 08/29/20 17:15 Plt Count 293 K/mm3 (142-424) 08/29/20 17:15 BUN 85 mg/dl (7-17) H 08/30/20 06:25 Creatinine 2.00 mg/dl (0.52-1.04) H D 08/30/20 06:25 Estimated Creat Clear 22 mL/min (50-200) 08/30/20 06:25 Was VTE Risk Assessment Performed: Yes VTE Score: 3 VTE Risk Level: Low Risk Clinical Trial Participant: No - Prophylaxis VTE Prophylaxis Ordered?: Yes Types of VTE Prophylaxis: TEDS Knee High
--- NOTE | 2020-08-30 08:12 | HMH.HP ---
*Admission Date: 08/30/20 <Xiomara Fowler - 08/30/20 08:13> *Chief complaint: Acute renal failure <Xiomara Fowler - 08/30/20 08:13> *History of present illness: Ms. Bergman is an 84-year-old female with a history of chronic constipation, hypothyroidism, renal insufficiency, Jean Marie's syndrome, lymphedema of bilateral lower extremities, hyperuricemia, and macular degeneration who was sent from [facility] to [facility] emergency room for evaluation due to increased BUN and creatinine after receiving IV fluids at 100 an hour in that facility. Patient is not a historian at all. She does answer yes or no to some questions. Information is obtained from the record. To note she has had 2 recent admissions To [facility] on 07/20/2020 and 08/01/2020 with urinary tract infections and altered mental status. Family was unable to care for her at home and thus she went to [facility] for further treatment. In the emergency room Laboratory data revealed a TSH slightly high at 6.78. Urine revealed probable urinary tract infection with pending cultures. She was started on InVance and given a liter of fluids in the emergency room. EKG revealed No evidence of acute ischemia or injury. Chest x-ray showed a hiatal hernia and was otherwise negative. Head CT showed no acute intracranial findings and without change. CT of the abdomen/Pelvis revealed constipation with rectal fecal impaction, hiatal hernia, and no renal or ureteral calculi or hydronephrosis or obvious renal mass. CBC showed a hemoglobin of 13.7 hematocrit of 41.2 and white blood cell count of 8700. Blood chemistries with potassium of 3.7, sodium 141; BUN on admission was 98 with a creatinine of 2.6 and this a.m. was 85 and 2 respectively. GFR went from 18 to 24. Liver function studies were not elevated. Patient was admitted for further evaluation and treatment and maintained on Invanz every 24 hours and IV fluids at 100 an hour. Some of her home meds have been ordered. <Xiomara Fowler - 08/30/20 09:00> [facility] History Medical History: Reports:: Dementia, Gastroesophageal Reflux Disease(GERD), Hiatal Hernia, Hyperlipidemia, Hypertension, Renal Insufficiency (Chronic) Denies:: Cancer, Diabetes Mellitus Type 1, Diabetes Mellitus Type 2, MRSA <JanethXiomara 08/30/20 09:00> *Have you ever received a pneumonia vaccine?: No <FowlerXiomara 08/30/20 08:13> *Have you received a flu vaccine this season?: No <JanethXiomara 08/30/20 08:13> Other Medical History: Reports: Arthritis, Hypothyroidism, Thyroid Disease, Other (+RA factor, Macular degeneration) <Fowler,Xiomara 08/30/20 08:13> Laterality Cases: Bilateral: Other <FowlerXiomara 08/30/20 08:13> Other Surgeries: Yes: Cholecystectomy, Colonoscopy <Fowler,Xiomara 08/30/20 08:13> Amputation: No <Fowler,Xiomara 08/30/20 08:13> Fractures: No <FowlerXiomara 08/30/20 08:13> - *Social History Smoking Status: Never smoker <Fowler,Xiomara 08/30/20 08:13> Alcohol Intake: never <FowlerXiomara 08/30/20 08:13> *Occupational Status:: retired <FowlerXiomara 08/30/20 08:13> Housing: longterm <FowlerXiomara 08/30/20 08:13> *Travel in the last 8 weeks: None <FowlerXiomara 08/30/20 08:13> Family Hx:: Hyperlipidemia, Hypertension, Kidney Disease, Thyroid Disorder <Fowler,Xiomara 08/30/20 09:00> Review of Systems - Constitutional Denies fever(s) <Xiomara Fowler 08/30/20 09:00> - ENT Reports dry mouth <Fowler,Xiomara - 08/30/20 09:00> - *Cardiovascular Denies chest pain <JanethXiomara - 08/30/20 09:00> - *Respiratory Denies shortness of breath <JanethXiomara 08/30/20 09:00> - *Gastrointestinal Reports constipation, Denies abdominal pain, Denies vomiting <JanethXiomara 08/30/20 09:00> - *Genitourinary Reports urinary incontinence <Xiomara Fowler 08/30/20 09:00> - *Musculoskeletal Reports other <Xiomara Fowler - 08/30/20 09:00> Comments:
--- NOTE | 2020-08-30 09:49 | PC.NURSE ---
Pt disimpacted per MD orders. Moderate amount of brown hard stool removed. Suppository admin per DEC, pt turned to side. Bed alarm in place for pt's safety, call nik w/in reach.
--- NOTE | 2020-08-30 09:53 | HMH.PHAINT ---
HOME MEDICATIONS REVIEWED FROM HALFWAY DEC.
[2020-08-30 10:52] LABS: Occult Blood,Stool Negative (Negative)
--- NOTE | 2020-08-30 15:28 | PC.NURSE ---
Pt has rested comfortably this shift. When turning and repositioning pt she will become loud and yell out. Pt was given tramadol for pain this shift per MAR. Has been turned and repositioned Q2H. Pt is total care. Sinclair cath to drain at bedside w/ cloudy yellow urine present. Pt was disimpacted earlier this shift, suppository given w/ no results and then fleets enema. Pt has not had a BM since this was given. Upon assessment, lungs CTA. Abdomen soft, non-tender w/ active BS. Scattered bruising noted. Heels noted to be red and boggy, heel protectors put in place. Neurologically only alert to self and at times will not answer that question. Pt uncooperative when attempting to put TEDS on. Pt's [id number] visited this shift but was not aware of who she was. Bed alarm in place. Call nik w/in reach.
--- NOTE | 2020-08-30 16:46 | DIET.NUTRFU ---
Pt with severe protein calorie malnutrition with loss of 13% body weight in past month. Refused first 2 meals today, would eat a few bites sherbert. Protein supplements available to pt by request/RN offer when pt refuses meal. Will provide pt with greater protein supplementation as renal function improves.
--- NOTE | 2020-08-31 02:17 | PC.NURSE ---
A&O TO SELF. PT HAS TOLERATED ROOM AIR WELL THROUGHOUT SHIFT. RESPIRATIONS REGULAR AND UNLABORED. LUNG SOUNDS BILATERALLY CLEAR. NO EDEMA NOTED. +2 PULSES NOTED THROUGHOUT. HAND SURFACE SHIP USW SUPERVISOR EQUAL. PT TOOK MEDICATIONS WITH PUDDING AND TOLERATED WELL. ACTIVE BOWEL SOUNDS HEARD IN ALL 4 QUADRANTS. SOFT AND NONTENDER ABDOMEN. DEAN IN PLACE WITH CLOUDY YELLOW URINE NOTED. NO KINKS NOTED. BED ALARM ON TO PROMOTE SAFETY. PT HAS SLEPT ON AND OFF THROUGHOUT SHIFT. MITTENS ON TO PROTECT PT AND KEEP HER FROM PULLING IV OUT. HEEL PROTECTORS IN PLACE DUE TO RED AND BOGGY HEELS. PT TURNED Q2 HOURS AND ORAL CARE PROVIDED Q2 HOURS. PT HAS SMEARED SOME BUT HASN'T HAD A LARGE BM YET. PT IS CURRENTLY RESTING WITH CALL LIGHT WITHIN REACH. BED IN LOWEST POSITION. VSS. WILL CONTINUE TO MONITOR.
[2020-08-31 03:51] VITALS: BP 122/91; PULSE 82; RESP 14; TEMP 37.1; O2SAT 99
[2020-08-31 05:00] VITALS: BMI 25.7
[2020-08-31 07:04] LABS: Basophils % 0.2 % (0.1-2.0); Eosinophils # 0.2 K/mm3 (0.0-0.4); Eosinophils % 2.2 % (0.1-12.0); Hematocrit 32.7 % (37.0-47.0); Hemoglobin 10.5 g/dL (12.2-16.2); Lymphocytes # 0.7 K/mm3 (0.7-4.5); Lymphocytes % 10.5 % (10-50); Mean Corpuscular HGB Conc 32.2 g/dL (31.8-35.4); Mean Corpuscular Hemoglobin 31.3 pg (27.0-31.2); Mean Corpuscular Volume 97.2 fl (81-99); Mean Platelet Volume 8.1 fl (7.4-10.4); Monocytes # 0.4 K/mm3 (0.1-1.0); Monocytes % 6.1 % (1.7-9.3); Neutrophils # 5.3 K/mm3 (1.8-7.8); Platelet Count 216 K/mm3 (142-424); Red Blood Count 3.37 M/mm3 (4.20-5.40); Red Cell Distribution Width 15.7 % (11.5-17.5); White Blood Count 6.6 K/mm3 (4.8-10.8)
[2020-08-31 07:15] LABS: Chloride 112 mmol/L (98-107); Potassium 3.1 mmoL/L (3.5-5.1); Sodium 141 mmol/L (136-145)
[2020-08-31 07:18] LABS: Anion Gap 10.1 mEq/L (5-15); Blood Urea Nitrogen 58 mg/dl (7-17); Calcium 8.5 mg/dl (8.4-10.2); Carbon Dioxide 22 mmol/L (22.0-30.0); Creatinine Clearance Estimated 28 mL/min (50-200); Estimated Glomerular Filt Rate 31 ml/min (>60); GFR (African American) 37 ML/MIN (>60); Glucose 87 mg/dl (74-100)
--- NOTE | 2020-08-31 07:21 | SW/DCPLANNER ---
Addendum entered by Evelyn Martinez 09/01/20 11:54: PATIENT IS DISCHARGING BACK TO [facility] AND I HAVE LET THE FACILITY KNOW SHE WILL BE RETURNING... THEY ARE GOING TO TRY AND USE HER SKILLED DAYS.. Original Note: PATIENT ADMITTED TO [facility] WITH A DIAGNOSIS OF ACUTE KIDNEY INJURY...SHE IS A RESIDENT OF [facility] [place] AND IS A READMISSION TO [facility]....SHE WILL RETURN BACK TO HER LONG-TERM BED ONCE DISCHARGED FROM THE ACUTE HOSPITAL. CM WILL CONTACT [facility] ONCE PATIENT IS MEDICALLY READY...
[2020-08-31 07:42] VITALS: BP 126/80; PULSE 84; RESP 18; TEMP 36.9; O2SAT 97
[2020-08-31 08:00] VITALS: PULSE 84; RESP 18; O2SAT 97
--- NOTE | 2020-08-31 08:10 | HMH.ACPN2 ---
<Bertha Hsu - Last Filed: 08/31/20 08:10> Internal Medicine - PN: Subj *Date: 08/31/20 *Time: 08:10 Interval history: Pt is resting quietly in bed. She is non-verbal. She will open her eyes in response to tactile stimuli. Exam Vital signs and Labs for Last 24 Hours: Temp Pulse Resp BP Pulse Ox 98.5 F 84 18 126/80 97 08/31/20 07:42 08/31/20 07:42 08/31/20 07:42 08/31/20 07:42 08/31/20 07:42 Laboratory Results - last 24 hr 08/30/20 09:20: Stool Occult Blood Negative 08/31/20 06:29: WBC 6.6, RBC 3.37 L, Hgb 10.5 L, Hct 32.7 L, MCV 97.2, MCH 31.3 H, MCHC 32.2, RDW 15.7, Plt Count 216 D, MPV 8.1, Neut % (Auto) 81.0 H, Lymph % (Auto) 10.5, [place] % (Auto) 6.1, Eos % (Auto) 2.2, Baso % (Auto) 0.2, Neut # (Auto) 5.3, Lymph # (Auto) 0.7, [place] # (Auto) 0.4, Eos # (Auto) 0.2, Baso # (Auto) 0.0 08/31/20 06:29: Sodium 141, Potassium 3.1 L, Chloride 112 H, Carbon Dioxide 22, Anion Gap 10.1, BUN 58 H D, Creatinine 1.60 H, Estimated Creat Clear 28, Estimated GFR 31 L, Est GFR ( Amer) 37 L D, Glucose 87, Calcium 8.5 I & O for Last 24 hours: Intake & Output 08/28/20 08/29/20 08/30/20 08/31/20 11:59 11:59 11:59 11:59 Intake Total 1526 / 1526 1484 / 1484 Output Total 1290 / 1290 1250 / 1250 Balance 236 / 236 234 / 234 Weight 141 lb 145 lb Microbiology Reports for the Last 24 Hours: Microbiology 08/29/20 18:47 Urine,Catheterized Urine Culture - Preliminary - Constitutional no acute distress - *Routine HEENT Exam Head: Present: normocephalic - *Routine Respiratory Exam Absent: respiratory distress Comments: generally diminished - *Routine Cardiovascular Exam Present: RRR - *Routine Abdominal Exam Present: soft, normoactive bowel sounds. Absent: distended - *Routine Extremities Exam Present: pulses intact Comments: 1+ BLE edema with heel lift boots in place - *Routine Neurological Exam arouses to tactile stimuli, will moan in protest but is otherwise nonverbal Assessment and Plan (1) Altered mental status Status: Chronic Qualifiers: Altered mental status type: unspecified Qualified Code(s): R41.82 - Altered mental status, unspecified Category: Medical Code(s): R41.82 - Altered mental status, unspecified (2) Acute kidney injury Status: Acute Category: Medical Code(s): N17.9 - Acute kidney failure, unspecified (3) Dehydration Status: Acute Category: Medical Code(s): E86.0 - Dehydration (4) Urinary tract infection Status: Acute Category: Medical Code(s): N39.0 - Urinary tract infection, site not specified (5) Constipation Status: Acute Category: Medical Code(s): K59.00 - Constipation, unspecified (6) Fecal impaction in rectum Status: Acute Category: Medical Code(s): K56.41 - Fecal impaction (7) Debilitated Status: Chronic Category: Medical Code(s): R53.81 - Other malaise (8) Hyperuricemia Status: Chronic Category: Medical Code(s): E79.0 - Hyperuricemia without signs of inflammatory arthritis and tophaceous disease (9) Lymphedema Status: Chronic Category: Medical Code(s): I89.0 - Lymphedema, not elsewhere classified (10) Chronic renal insufficiency Status: Chronic Category: Medical Code(s): N18.9 - Chronic kidney disease, unspecified (11) Hypertension Status: Chronic Category: Medical Code(s): I10 - Essential (primary) hypertension (12) Hypothyroidism Status: Chronic Category: Medical Code(s): E03.9 - Hypothyroidism, unspecified (13) Chronic pain Status: Chronic Category: Medical Code(s): G89.29 - Other chronic pain - Assessment and plan all Dx Assessment and Plan for all problems:: Renal function improving. Potassium decreased. Urine cultures pending. Per Dr. Donahue. <Gucci Donahue - Last Filed: 08/31/20 09:43> Internal Medicine - PN: Subj *Date: 08/31/20 *Time: 09:42 Exam Vital signs and Labs for Last 24 Hours: Tem
[2020-08-31 16:00] VITALS: BP 132/71; PULSE 92; RESP 16; TEMP 36.7; O2SAT 99
[2020-08-31 20:00] VITALS: BP 132/59; PULSE 87; RESP 16; TEMP 37.7; O2SAT 95
[2020-08-31 21:45] VITALS: O2SAT 95
[2020-09-01 04:00] VITALS: BP 131/65; PULSE 84; RESP 17; TEMP 37.8; O2SAT 96
[2020-09-01 05:08] VITALS: BMI 25.5
[2020-09-01 06:39] VITALS: TEMP 37.2
[2020-09-01 08:00] VITALS: BP 127/54; PULSE 74; RESP 16; TEMP 36.4; O2SAT 95
--- NOTE | 2020-09-01 08:16 | HMH.ACPN2 ---
<Bertha Hsu - Last Filed: 09/01/20 08:16> Internal Medicine - PN: Subj *Date: 09/01/20 *Time: 08:17 Interval history: She is alert this morning. She answers yes or no questions and follows simple commands. She denies pain and reports feeling better. Exam Vital signs and Labs for Last 24 Hours: Temp Pulse Resp BP Pulse Ox 99.0 F 84 17 131/65 96 09/01/20 06:39 09/01/20 04:00 09/01/20 04:00 09/01/20 04:00 09/01/20 04:00 I & O for Last 24 hours: Intake & Output 08/29/20 08/30/20 08/31/20 09/01/20 11:59 11:59 11:59 11:59 Intake Total 1526 / 1526 1484 / 1484 1325 / 1325 Output Total 1290 / 1290 1250 / 1250 1325 / 1325 Balance 236 / 236 234 / 234 0 / 0 Weight 141 lb 145 lb 144 lb 4 oz Microbiology Reports for the Last 24 Hours: Microbiology 08/29/20 18:47 Urine,Catheterized Urine Culture - Preliminary - Constitutional no acute distress - *Routine HEENT Exam Head: Present: normocephalic - *Routine Respiratory Exam Absent: rhonchi, wheezes Comments: generally diminished - *Routine Cardiovascular Exam Present: RRR - *Routine Abdominal Exam Present: soft, normoactive bowel sounds. Absent: tenderness, distended - *Routine Extremities Exam Present: pulses intact Comments: 1+ BLE edema with heel lift boots in place - *Routine Neurological Exam Present: alert answers yes/no questions, follows simple commands Assessment and Plan (1) Altered mental status Status: Chronic Qualifiers: Altered mental status type: unspecified Qualified Code(s): R41.82 - Altered mental status, unspecified Category: Medical Code(s): R41.82 - Altered mental status, unspecified (2) Acute kidney injury Status: Acute Category: Medical Code(s): N17.9 - Acute kidney failure, unspecified (3) Dehydration Status: Acute Category: Medical Code(s): E86.0 - Dehydration (4) Urinary tract infection Status: Acute Category: Medical Code(s): N39.0 - Urinary tract infection, site not specified (5) Constipation Status: Acute Category: Medical Code(s): K59.00 - Constipation, unspecified (6) Fecal impaction in rectum Status: Acute Category: Medical Code(s): K56.41 - Fecal impaction (7) Debilitated Status: Chronic Category: Medical Code(s): R53.81 - Other malaise (8) Hyperuricemia Status: Chronic Category: Medical Code(s): E79.0 - Hyperuricemia without signs of inflammatory arthritis and tophaceous disease (9) Lymphedema Status: Chronic Category: Medical Code(s): I89.0 - Lymphedema, not elsewhere classified (10) Chronic renal insufficiency Status: Chronic Category: Medical Code(s): N18.9 - Chronic kidney disease, unspecified (11) Hypertension Status: Chronic Category: Medical Code(s): I10 - Essential (primary) hypertension (12) Hypothyroidism Status: Chronic Category: Medical Code(s): E03.9 - Hypothyroidism, unspecified (13) Chronic pain Status: Chronic Category: Medical Code(s): G89.29 - Other chronic pain - Assessment and plan all Dx Assessment and Plan for all problems:: Per Dr. Donahue. <Gucci Donahue - Last Filed: 09/01/20 09:49> Internal Medicine - PN: Subj *Date: 09/01/20 *Time: 09:46 Exam Vital signs and Labs for Last 24 Hours: Temp Pulse Resp BP Pulse Ox 97.6 F 74 16 127/54 L 95 09/01/20 08:00 09/01/20 08:00 09/01/20 08:00 09/01/20 08:00 09/01/20 08:00 Laboratory Results - last 24 hr 09/01/20 08:03: Sodium 143, Potassium 3.0 L, Chloride 116 H, Carbon Dioxide 21 L, Anion Gap 9.0, BUN 36 H D, Creatinine 1.30 H, Estimated Creat Clear 34, Estimated GFR 39 L, Est GFR ( Amer) 47 L D, Glucose 92, Calcium 8.5 I & O for Last 24 hours: Intake & Output 08/29/20 08/30/20 08/31/20 09/01/20 11:59 11:59 11:59 11:59 Intake Total 1526 / 1526 1484 / 1484 1445 / 1445 Output Total 1290 / 1290 1250 / 1250 1325 / 1325 Balance 236 / 236
[2020-09-01 08:49] LABS: Chloride 116 mmol/L (98-107); Sodium 143 mmol/L (136-145)
[2020-09-01 08:52] LABS: Blood Urea Nitrogen 36 mg/dl (7-17); Creatinine Clearance Estimated 34 mL/min (50-200); Estimated Glomerular Filt Rate 39 ml/min (>60); GFR (African American) 47 ML/MIN (>60)
[2020-09-01 08:53] LABS: Calcium 8.5 mg/dl (8.4-10.2); Carbon Dioxide 21 mmol/L (22.0-30.0); Glucose 92 mg/dl (74-100)
--- NOTE | 2020-09-01 09:27 | HMH.DCSUM ---
General - General Admission date:: 08/29/20 <Gucci Donahue - 09/01/20 09:55> 08/29/20 <Bertha Hsu - 09/01/20 09:30> Discharge date: 09/01/20 <Bertha Hsu - 09/01/20 09:30> HPI HPI: Ms. Bergman was an 84-year-old female with a history of chronic constipation, hypothyroidism, renal insufficiency, Jean Marie's syndrome, lymphedema of bilateral lower extremities, hyperuricemia, and macular degeneration who was sent from [facility] to [facility] emergency room for evaluation due to increased BUN and creatinine after receiving IV fluids at 100 an hour in that facility. Patient was not a historian at all. She did answer yes or no to some questions. Information was obtained from the record. To date she had had two recent admissions to [facility] on 07/20/2020 and 08/01/2020 with urinary tract infections and altered mental status. Family was unable to care for her at home and, thus, she went to [facility] for further treatment. In the emergency room, laboratory data revealed a TSH slightly high at 6.78. Urine revealed probable urinary tract infection with pending cultures. She was started on Invanz and given a liter of fluids in the emergency room. EKG revealed no evidence of acute ischemia or injury. Chest x-ray showed a hiatal hernia and was otherwise negative. Head CT showed no acute intracranial findings and without change. CT of the abdomen/Pelvis revealed constipation with rectal fecal impaction, hiatal hernia, and no renal or ureteral calculi or hydronephrosis or obvious renal mass. CBC showed a hemoglobin of 13.7 hematocrit of 41.2 and white blood cell count of 8700. Blood chemistries with potassium of 3.7, sodium 141; BUN on admission was 98 with a creatinine of 2.6 and this a.m. was 85 and 2 respectively. GFR went from 18 to 24. Liver function studies were not elevated. Patient was admitted for further evaluation and treatment and maintained on Invanz every 24 hours and IV fluids at 100 an hour. Some of her home meds were ordered. <Bertha Hsu - 09/01/20 09:30> Hospital Course Hospital Course: Her renal function is improved with hydration suggesting prerenal azotemia as etiology for acute kidney injury. Initial urinalysis was suspicious for urinary tract infection however her cultures not show any reportable organisms. She has been on Invanz during admission and will discharge on Cipro to complete her course of antibiotics. X-rays on admission indicated fecal impaction. She was disimpacted and her bowels have moved some but will need to continue on laxatives after discharge mental status is improved throughout the admission and her demeanor is more calm but she remains oriented to name only. <RowanGucci wood - 09/01/20 09:55> The morning following admission, her prerenal azotemia had improved with hydration. She remained drowsy. By the morning of 09/01/2020, her renal function had further improved. She was more alert. She was felt stable to return to [facility] with oral antibiotic. <Bertha Hsu - 09/01/20 09:35> Objective Vital signs: Temp Pulse Resp BP Pulse Ox 97.6 F 74 16 127/54 L 95 09/01/20 08:00 09/01/20 08:00 09/01/20 08:00 09/01/20 08:00 09/01/20 08:00 <Gucci Donahue Juan - 09/01/20 09:55> Temp Pulse Resp BP Pulse Ox 97.6 F 74 16 127/54 L 95 09/01/20 08:00 09/01/20 08:00 09/01/20 08:00 09/01/20 08:00 09/01/20 08:00 <Bertha Hsu - 09/01/20 09:30> Results Labs on day of discharge: Labs from last 24 hours 09/01/20 08:03 Sodium 143 Potassium 3.0 L Chloride 116 H Carbon Dioxide 21 L Anion Gap 9.0 BUN 36 H D Creatinine 1.30 H Estimated Creat Clear 34 Estimated GFR 39 L Est GFR ( Amer) 47 L D Glucose 92 Calcium 8.5 Preliminary micro results at discharge 08/29/20 18:47 Urine Culture - Preliminary Urine,Catheterize
--- NOTE | 2020-09-01 11:03 | PC.NURSE ---
CALLED REPORT TO [facility].
== END 2020-09-01 15:26 | DRG 683 ==
LOC: ER 20:33 → 2ND 21:17
PROVIDERS: Nurse Practitioner Family; Admitting Provider Family Medicine; Emergency Provider Emergency Medicine; PCP Family Medicine; Visit Provider Family Medicine
DX: N17.9 Acute kidney failure, unspecified (principal); N39.0 Urinary tract infection, site not specified; E86.0 Dehydration; Z86.19 Personal history of other infectious and parasitic diseases; K56.41 Fecal impaction; I12.9 Hypertensive chronic kidney disease with stage 1 through stage 4 chronic kidney disease, or unspecified chronic kidney disease; N18.9 Chronic kidney disease, unspecified; G89.29 Other chronic pain; E79.0 Hyperuricemia without signs of inflammatory arthritis and tophaceous disease; E03.9 Hypothyroidism, unspecified; I89.0 Lymphedema, not elsewhere classified; Z88.2 Allergy status to sulfonamides; Z88.1 Allergy status to other antibiotic agents; Z88.8 Allergy status to other drugs, medicaments and biological substances; Z79.899 Other long term (current) drug therapy; I73.00 Raynaud's syndrome without gangrene
CPT/HCPCS: 36415; 71045; 74176; 80048; 80053; 81001; 82272; 82550; 83735; 84443; 84484; 85025; 86328; 87086; 87186; 93005; 96365; 96367; 96375; 99284; G0328; J1335